=== PATIENT | male | born 1960 | race Caucasian/White ===

== ENCOUNTER 2025-01-04 10:07 | Inpatient (IN) | payer OTHER, SELFPAY ==
[2025-01-04] VITALS (7 sets, daily range): BP systolic 98–117; BP diastolic 65–71; PULSE 65–93; RESP 16–18; TEMP 36.7–37.1; O2SAT 95–100; BMI 18.6
--- NOTE | ~2025-01-04 | CT_ITS ---
EXAMINATION: CT ABDOMEN AND PELVIS WITH CONTRAST CLINICAL INFORMATION: Large inguinal hernia, pain. COMPARISON: None available. TECHNIQUE: Multidetector volumetric images were obtained from the superior aspect of the liver through the pubic symphysis following administration 85 mL of Omnipaque 350 intravenous contrast. Sagittal and coronal reformatted images were obtained on the technologist's workstation. Oral contrast: No This CT examination was performed using dose optimization techniques as appropriate, variously including the following: *Automated exposure control *Adjustment of mA and/or kV according to patient size (this includes techniques or standardized protocols for targeted exams where dose is matched to indication/reason for exam; i.e. extremities or head) *Use of iterative reconstruction technique FINDINGS: LUNG BASES: Hyperaerated lungs with advanced emphysematous changes in the lung bases. Thickening of the small airways is noted throughout both lower lobes, the lingula and right middle lobe. There are subpleural bulla present. There are subpleural consolidative opacities in the posterior lower lobes right greater than left. Inflammatory appearing tree in bud nodularity is seen throughout both lung bases suggesting endobronchial spread of infection. There are no effusions. The heart size is normal. Small hiatus hernia suspected at the GE junction. LIVER, GALLBLADDER, AND BILIARY TREE: The liver is normal in size, shape, and attenuation. No focal hepatic lesion or biliary ductal dilatation is present. The gallbladder is unremarkable with no evidence of radiopaque gallstones, gallbladder wall thickening, or obvious pericholecystic inflammatory changes. PANCREAS: Unremarkable. SPLEEN: Unremarkable. ADRENAL GLANDS: Mild left hyperplasia. The right is normal. KIDNEYS AND URETERS: The kidneys are normal in size, shape, and attenuation. No hydronephrosis, hydroureter, or calculi seen. No perinephric stranding. BLADDER: Markedly decompressed although grossly normal. GASTROINTESTINAL TRACT: There is a large left inguinal hernia containing a loop of incarcerated small bowel and small bowel mesentery, with vascular engorgement, wall thickening of the incarcerated loop with mucosal enhancement, and a subsequent moderate grade mechanical small bowel obstruction of the more proximal loops of small bowel. There is no colonic involvement within the hernia. The cecum is very low-lying within the pelvis, just above the bladder. No evidence of appendicitis. Moderate volume of fecal material in the cecum and ascending colon. No large bowel obstruction. The left colon is decompressed no rectal abnormality identified. PERITONEUM: No free air or ascites. ABDOMINAL WALL: Large left inguinal hernia as discussed above. LYMPH NODES: No lymphadenopathy appreciated. VASCULAR: There is moderate calcific atheromatous change of the aorta, iliac arteries, and their branches. There is no aneurysm. There is no venous thrombosis. PELVIC VISCERA: Mild prostate enlargement, with irregular enhancement pattern, nonspecific. The prostate measures approximately 4.0 cm in diameter. Normal seminal vesicles. OSSEOUS STRUCTURES: No acute or suspicious osseous abnormality. Mild spinal degenerative changes. CT/CT abdomen pelvis w IV con IMPRESSION: 1. Large left inguinal hernia, containing fat, a loop of small bowel, and mesentery. There is incarceration of the loop of small bowel and resultant moderate grade mechanical small bowel obstruction or proximal small bowel.. The loop of bowel within the hernia is thickened and enhancing, consistent with incarceration. Cannot exclude ischemia. 2. There is no free air or gross ascites. 3. There is gaseous distention of the colon, with moderate fecal residue in the right hemicolon, without evidence of large bowel obstruction. No colonic involvement within the left inguinal hernia. 4. Emphysematous changes in the lung bases, with small airway thickening, subpleural reticular opacities, nodular opacities, and centrilobular tree-in-bud type opacities suggesting endobronchial spread of infection. There are no effusions. Electronically signed by: Emiliano Schwarz MD 01/04/2025 01:22 PM EDT
--- NOTE | 2025-01-04 10:28 | ECG_ITS ---
Test Reason : ABD PAIN Blood Pressure : */* mmHG Vent. Rate : 77 BPM Atrial Rate : 77 BPM P-R Int : 134 ms QRS Dur : 80 ms QT Int : 370 ms P-R-T Axes : 90 74 71 degrees QTcB Int : 418 ms Normal sinus rhythm Early repolarization Normal ECG No previous ECGs available Referred By: Ana María Cardona Electronically Signed By: BRAD LAYTON
--- NOTE | 2025-01-04 10:29 | ED_ITS ---
HPI - General Adult General Chief complaint: Abdominal Pain Stated complaint: Lower abd pain Time Seen by Provider: 01/04/25 10:28 Source: patient Mode of arrival: ambulatory Limitations: no limitations History of Present Illness ED Provider: Ana María Cardona PA-C HPI narrative: Patient is a 64 year old assigned male at with a history of tobacco use (1 PPD) presenting to the emergency department today with left lower quadrant abdominal pain and left sided scrotal pain. Patient states that he has had a left inguinal hernia for years and was told to previously have it repaired but stated he put it off. Patient states that usually when he lies down - the pain improves however, over the last 4 days he has had increasing pain. Patient denies any dizziness, lightheadedness, vomiting, fever, chills, blurry vision, double vision, loss of vision, chest pain, difficulty breathing, shortness of breath, back pain, night sweats, pain with urination, increased urinary frequency, increased urinary urgency, blood in his urine or stool, syncope or a near syncopal episode, recent trauma or falls, bowel incontinence, bladder incontinence, or any other complaints at this time. Onset (ago): day(s) (4) Location: abdomen and left (testicle) Relieving factors: none Exacerbating factors: none Associated symptoms: nausea/vomiting Treatments prior to arrival: none Related Data Allergies Allergy/AdvReac Type Severity Reaction Status Date / Time Penicillins [PCN] Allergy Unknown Verified 01/04/25 10:15 Review of Systems 2 Constitutional: Constitutional: Reports no additional constitutional complaints, Denies chills, Denies fever(s) and Denies night sweats Eyes: Eyes: Reports no additional eye complaints, Denies blurry vision, Denies change in vision, Denies diplopia, Denies eye discharge, Denies loss of vision and Denies eye pain ENT: Denies dizziness Cardiovascular: Cardiovascular: Reports no additional cardiovascular complaints, Denies chest pain, Denies lightheadedness, Denies Loss of Consciousness and Denies dyspnea Respiratory: Respiratory: Reports no additional respiratory complaints and Denies dyspnea Gastrointestinal: Gastrointestinal: Reports no additional gastrointestinal complaints, Reports abdominal pain, Denies melena, Denies hematochezia, Denies change in bowel habits, Denies change in stool character, Reports nausea and Denies vomiting Genitourinary: Genitourinary: Reports no additional male genitourinary complaints, Denies hematuria, Denies oliguria, Denies difficulty urinating, Denies dysuria, Reports testicular pain, Denies urinary frequency, Denies urinary hesitancy, Denies urinary incontinence and Denies urinary urgency Musculoskeletal: Musculoskeletal: Reports no additional musculoskeletal complaints, Denies numbness and Denies tingling Neurologic: Denies dizziness, Denies loss of vision, Denies numbness and Denies tingling Psychiatric: Psychiatric: Reports no additional psychiatric complaints Endocrine: Endocrine: Reports no additional endocrine complaints Hematologic/Lymphatic: Hematologic/Lymphatic: Reports no additional hematologic/lymphatic complaints Allergic/Immunologic: Allergic/Immunologic: Reports no additional allergic/immunologic complaints PMFSH Past Medical History Attestation statement: The following information was validated with the patient. Source: old records reviewed and nursing notes reviewed Social History Social History Alcohol intake: current Alcohol intake frequency: a few times a month Smoked in Last 30 Days: Yes Use of substances other than those prescribed or required for medical reasons: Yes Substance Use Type: Marijuana Substance Use Frequency: Occasionally Advance Directives: No Advance Directives Information Provided: Yes Physical Exam ED Vital Signs: Vital Signs - 24 hr 01/04/25 10:14 01/04/25 12:00 Temperature 98.0 F Pulse Rate 93 68 Respiratory Rate 16 18 Blood Pressure 98/65 109/67 Pulse Oximetry 100 96 Oxygen Delivery Method Room Air Room Air BMI result Body Mass Index 18.6 Const General: cooperative, no acute distress, alert and awake Nutritional Appearance: well nourished Orientation/consciousness: patient oriented x3 HENMT Head: Yes normal to inspection and Yes atraumatic Ears: hearing grossly normal bilaterally and external ears normal General nose exam: Normal external nose present, no nasal discharge noted and no epistaxis Face and sinus: Yes normal facial exam, No abrasion and No laceration Mouth: Normal oral and palatal mucosa present, no drooling and no muffled voice Eyes General: appearance normal, both eyes and all related structures Periorbital: periorbital findings normal Eyelids: Yes eyelids normal Conjunctivae: conjunctivae normal Pupils: Equal, round and reactive pupils present EOM: EOMs intact bilaterally Neck Neck: Yes normal visual inspection, Yes full ROM and Yes no lymphadenopathy Resp Effort & Inspection: normal respiratory effort and able to speak in complete sentences Other: significant left sided scrotal swelling Neuro General: patient oriented x3, moves all extremities and CN's II-XI intact bilaterally Cranial nerves: Yes Equal, round and reactive pupils present Cognition (Neuro): normal cognition Extrem General: Yes normal to inspection, Yes full ROM and Yes capillary refill normal Psych Appearance: grossly normal Mental Status: mental status grossly normal Affect: normal affect Attitude: cooperative Thought process: Normal thought process present Thought content: Normal thought content present Insight: Good insight present (Psych) Medications Administered Discontinued Medications Generic Name Dose Route Start Last Admin Trade Name Clary PRN Reason Stop Dose Admin Iohexol 100 ml 01/04/25 12:54 01/04/25 12:54 Iohexol 350 Mg/Ml 100 Ml Infus..Btl IV 01/04/25 12:55 85 ml ONCE ONE Administration Morphine Sulfate 4 mg 01/04/25 10:54 01/04/25 11:28 Morphine Sulfate 4 Mg/Ml Cartridge IVPUSH 01/04/25 10:55 4 mg ONCE ONE Administration Protocol Ondansetron HCl 4 mg 01/04/25 10:54 01/04/25 11:28 Ondansetron Hcl 4 Mg/2 Ml Vial IVPUSH 01/04/25 10:55 4 mg ONCE ONE Administration Medical Decision Making Medical Decision Making [facility] Narrative: Patient is a 64 year old assigned male at with a history of tobacco use (1 PPD) presenting to the emergency department today with left lower quadrant abdominal pain and left sided scrotal pain. Patient's physical exam was as noted in the physical exam portion of this note. Patient's blood work showed an elevated WBC count of 13.2. Patient's urine showed no acute process. Patient's EKG was unremarkable. Patient's CT abd/pelvis showed a large left inguinal hernia, containing fat a loop of small bowel, and mesentery, with incarceration of the loop of small bowel and resultant moderate grade mechanical small bowel obstruction. I spoke to the general surgery team who recommended clear liquids for the patient, NPO after midnight, and admission to their service for surgical repair tomorrow (01/05/2025). I explained my physical exam findings as well as all test results to the patient. I answered all questions asked by the patient. Patient received IV Morphine and Zofran which, upon re-evaluation, he stated it helped his symptoms some. Patient verbalized agreement and understanding with this treatment plan and admission. Differential Diagnosis Differential Diagnoses: The differential diagnosis associated with the presentation includes Inguinal hernia Incarcerated hernia SBO Admission/Observation Consideration of admission/observation: Escalation of care including admission/observation considered Patient admitted as noted in the MDM Rationale portion of this note. 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 ) Lab Data [facility] Lab Attestation statement: I reviewed the patient's lab results. My interpretation of these results are in the MDM Rationale portion of this note. 01/04/25 10:44 01/04/25 11:28 Labs: Lab Results 01/04/25 01/04/25 01/04/25 Range/Units 10:44 11:28 11:59 WBC 13.2 H (4.8-10.8) X10*3/uL RBC 4.47 L (4.60-5.80) X10*6/uL Hgb 13.1 L (14.0-18.0) g/dl Hct 37.6 L (42.0-52.0) % MCV 84.1 (80.0-98.0) fL MCH 29.3 (27.0-33.0) pg MCHC 34.8 (31.0-36.0) g/dl RDW 14.2 (11.0-16.0) % Plt Count 282 (160-400) X10*3/uL MPV 9.4 (9.4-12.4) fL Immature Gran % (Auto) 0.4 (0.0-0.4) % Neut % (Auto) 76.2 H (45-73) % Lymph % (Auto) 12.3 L (20-40) % [place] % (Auto) 9.1 (2-11) % Eos % (Auto) 1.5 (0-4) % Baso % (Auto) 0.5 (0-2) % Lymph # (Auto) 1.6 (1.2-4.9) X10*3/uL [place] # (Auto) 1.2 (0.1-1.2) X10*3/uL Eos # (Auto) 0.2 (0.0-0.4) X10*3/uL Baso # (Auto) 0.1 (0.0-0.2) X10*3/uL Abs Immat Gran (auto) 0.05 H (0.00-0.03) X10*3/uL Absolute Neuts (auto) 10.0 H (2.0-8.3) x10*3/uL Absolute Nucleated RBC 0.000 (0.0-0.012) X10*3/uL Nucleated RBC % (auto) 0.0 (0.0-0.2) /100WBC Sodium 134 L (135-145) mmol/L Potassium 3.5 (3.3-5.1) mmol/L Chloride 99 (96-108) mmol/L Carbon Dioxide 29 (22-29) mmol/L Anion Gap 10 L (12-20) BUN 22 H (9-16) mg/dL Creatinine 0.84 (0.5-1.4) mg/dL Estim Creat Clear Calc 72.6 Estimated GFR > 60 Random Glucose 88 (60-115) mg/dL Lactic Acid (0.5-2.0) mmol/L Calcium 9.1 (8.4-10.2) mg/dL Magnesium 2.1 (1.6-2.6) mg/dL Total Bilirubin 0.9 (0.0-1.0) mg/dL AST 21 (5-37) U/L ALT 10 (0-40) U/L Alkaline Phosphatase 79 (39-117) U/L Total Protein 6.9 (6.5-8.0) g/dL Albumin 3.9 (3.5-5.0) g/dL Urine Color Yellow Urine Appearance Clear Urine pH 6.0 (5.0-9.0) Ur Specific [place] >= 1.030 H (1.005-1.025) Urine Protein 100 (2+) H (Neg-Trace) mg/dL Urine Glucose (UA) Negative (Negative) mg/dL Urine Ketones Trace (Negative) mg/dL Urine Blood Negative (Negative) Urine Nitrite Negative (Negative) Ur Leukocyte Esterase Negative (Negative) Urine RBC 0-2 (0-2) /HPF Urine WBC 0-5 (0-5) /HPF Ur Squamous Epith Cells 0-2 (0-2) /HPF Urine Bacteria None Seen (None Seen) Hyaline Casts 0-2 (0-2) /LPF Influenza Type A (PCR) NEGATIVE (Negative) Influenza Type B (PCR) NEGATIVE (Negative) RSV RNA Qual (PCR) NEGATIVE (Negative) SARS-CoV-2 RNA (RT-PCR) NEGATIVE (Negative) 01/04/25 Range/Units 14:02 WBC (4.8-10.8) X10*3/uL RBC (4.60-5.80) X10*6/uL Hgb (14.0-18.0) g/dl Hct (42.0-52.0) % MCV (80.0-98.0) fL MCH (27.0-33.0) pg MCHC (31.0-36.0) g/dl RDW (11.0-16.0) % Plt Count (160-400) X10*3/uL MPV (9.4-12.4) fL Immature Gran % (Auto) (0.0-0.4) % Neut % (Auto) (45-73) % Lymph % (Auto) (20-40) % [place] % (Auto) (2-11) % Eos % (Auto) (0-4) % Baso % (Auto) (0-2) % Lymph # (Auto) (1.2-4.9) X10*3/uL [place] # (Auto) (0.1-1.2) X10*3/uL Eos # (Auto) (0.0-0.4) X10*3/uL Baso # (Auto) (0.0-0.2) X10*3/uL Abs Immat Gran (auto) (0.00-0.03) X10*3/uL Absolute Neuts (auto) (2.0-8.3) x10*3/uL Absolute Nucleated RBC (0.0-0.012) X10*3/uL Nucleated RBC % (auto) (0.0-0.2) /100WBC Sodium (135-145) mmol/L Potassium (3.3-5.1) mmol/L Chloride (96-108) mmol/L Carbon Dioxide (22-29) mmol/L Anion Gap (12-20) BUN (9-16) mg/dL Creatinine (0.5-1.4) mg/dL Estim Creat Clear Calc Estimated GFR Random Glucose (60-115) mg/dL Lactic Acid 0.9 (0.5-2.0) mmol/L Calcium (8.4-10.2) mg/dL Magnesium (1.6-2.6) mg/dL Total Bilirubin (0.0-1.0) mg/dL AST (5-37) U/L ALT (0-40) U/L Alkaline Phosphatase (39-117) U/L Total Protein (6.5-8.0) g/dL Albumin (3.5-5.0) g/dL Urine Color Urine Appearance Urine pH (5.0-9.0) Ur Specific [place] (1.005-1.025) Urine Protein (Neg-Trace) mg/dL Urine Glucose (UA) (Negative) mg/dL Urine Ketones (Negative) mg/dL Urine Blood (Negative) Urine Nitrite (Negative) Ur Leukocyte Esterase (Negative) Urine RBC (0-2) /HPF Urine WBC (0-5) /HPF Ur Squamous Epith Cells (0-2) /HPF Urine Bacteria (None Seen) Hyaline Casts (0-2) /LPF Influenza Type A (PCR) (Negative) Influenza Type B (PCR) (Negative) RSV RNA Qual (PCR) (Negative) SARS-CoV-2 RNA (RT-PCR) (Negative) Independent Interpretation I performed an independent interpretation of an: EKG and CT Scan Interpretation: My interpretation is in agreement with the radiologist's impression of this imaging study. L Report Number: [id number]: Total DLP = 414.00 mGy-cm EXAMINATION: CT ABDOMEN AND PELVIS WITH CONTRAST CLINICAL INFORMATION: Large inguinal hernia, pain. COMPARISON: None available. TECHNIQUE: Multidetector volumetric images were obtained from the superior aspect of the liver through the pubic symphysis following administration 85 mL of Omnipaque 350 intravenous contrast. Sagittal and coronal reformatted images were obtained on the technologist's workstation. Oral contrast: No This CT examination was performed using dose optimization techniques as appropriate, variously including the following: *Automated exposure control *Adjustment of mA and/or kV according to patient size (this includes techniques or standardized protocols for targeted exams where dose is matched to indication/reason for exam; i.e. extremities or head) *Use of iterative reconstruction technique FINDINGS: LUNG BASES: Hyperaerated lungs with advanced emphysematous changes in the lung bases. Thickening of the small airways is noted throughout both lower lobes, the lingula and right middle lobe. There are subpleural bulla present. There are subpleural consolidative opacities in the posterior lower lobes right greater than left. Inflammatory appearing tree in bud nodularity is seen throughout both lung bases suggesting endobronchial spread of infection. There are no effusions. The heart size is normal. Small hiatus hernia suspected at the GE junction. LIVER, GALLBLADDER, AND BILIARY TREE: The liver is normal in size, shape, and attenuation. No focal hepatic lesion or biliary ductal dilatation is present. The gallbladder is unremarkable with no evidence of radiopaque gallstones, gallbladder wall thickening, or obvious pericholecystic inflammatory changes. PANCREAS: Unremarkable. SPLEEN: Unremarkable. ADRENAL GLANDS: Mild left hyperplasia. The right is normal. KIDNEYS AND URETERS: The kidneys are normal in size, shape, and attenuation. No hydronephrosis, hydroureter, or calculi seen. No perinephric stranding. BLADDER: Markedly decompressed although grossly normal. GASTROINTESTINAL TRACT: There is a large left inguinal hernia containing a loop of incarcerated small bowel and small bowel mesentery, with vascular engorgement, wall thickening of the incarcerated loop with mucosal enhancement, and a subsequent moderate grade mechanical small bowel obstruction of the more proximal loops of small bowel. There is no colonic involvement within the hernia. The cecum is very low-lying within the pelvis, just above the bladder. No evidence of appendicitis. Moderate volume of fecal material in the cecum and ascending colon. No large bowel obstruction. The left colon is decompressed no rectal abnormality identified. PERITONEUM: No free air or ascites. ABDOMINAL WALL: Large left inguinal hernia as discussed above. LYMPH NODES: No lymphadenopathy appreciated. VASCULAR: There is moderate calcific atheromatous change of the aorta, iliac arteries, and their branches. There is no aneurysm.There is no venous thrombosis. PELVIC VISCERA: Mild prostate enlargement, with irregular enhancement pattern, nonspecific. The prostate measures approximately 4.0 cm in diameter. Normal seminal vesicles. OSSEOUS STRUCTURES: No acute or suspicious osseous abnormality. Mild spinal degenerative changes. CT/CT abdomen pelvis w IV con IMPRESSION: 1. Large left inguinal hernia, containing fat, a loop of small bowel, and mesentery. There is incarceration of the loop of small bowel and resultant moderate grade mechanical small bowel obstruction or proximal small bowel. The loop of bowel within the hernia is thickened and enhancing, consistent with incarceration. Cannot exclude ischemia. 2. There is no free air or gross ascites. 3. There is gaseous distention of the colon, with moderate fecal residue in the right hemicolon, without evidence of large bowel obstruction. No colonic involvement within the left inguinal hernia. 4. Emphysematous changes in the lung bases, with small airway thickening, subpleural reticular opacities, nodular opacities, and centrilobular tree-in-bud type opacities suggesting endobronchial spread of infection. There are no effusions. Electronically signed by: Emiliano Schwarz MD 01/04/2025 01:22 PM EDT RP Dictated By: Emiliano Schwarz MD Signed By: Electronically signed by Emiliano Schwarz MD 01/04/25 1322 I independently interpreted this EKG and am in agreement with the below findings: Vent. Rate: 77 BPM Atrial Rate: 77 BPM P-R Int: 134 ms QRS Dur: 80 ms QT Int: 370 ms P-R-T Axes: 90 74 71 degrees QTcB Int: 418 ms Normal sinus rhythm Early repolarization Normal ECG No previous ECGs available DD/ [id number] Radiology Impression Discussion of test interpretation with radiology: I have reviewed the radiologist's reading. Critical Care Time Critical Care Time Critical Care Time: Yes Total Critical Care Time: 34 Attestation: I spent 34 minutes of Critical Care Time with this patient. This does not include time spent on separately reported billable procedures. Discharge Plan Discharge Clinical Impression: Incarcerated left inguinal hernia, Small bowel obstruction Patient Disposition: Admitted As Inpatient Print Language: Kiswahili
--- NOTE | 2025-01-04 10:54 | PC.NURSE ---
pt is alert and oriented, skin pwd, respirations even and unlabored, ls clear with a chronic junky cough-hx of copd and smoking, pt reports since Wednesday having left lower abd pain/nausea, active bowel sounds in all 4 quadrants, abd soft and non-tender, when asked the pt where the pain is he points to the left groin/testicle area, pt reports hx of hernia chaperoned Ana María TOBAR in the testicular evaluation, left testicle very enlarged
[2025-01-04 10:58] LABS: MANUAL DIFF FLAG NO
[2025-01-04 11:02] LABS: Basophils Absolute Auto 0.1 X10*3/uL (0.0-0.2); Basophils Percent Auto 0.5 % (0-2); Eosinophils Absolute Auto 0.2 X10*3/uL (0.0-0.4); Eosinophils Percent Auto 1.5 % (0-4); Hematocrit 37.6 % (42.0-52.0); Hemoglobin 13.1 g/dl (14.0-18.0); Imm Gran Abs Auto 0.05 X10*3/uL (0.00-0.03); Imm Gran Pct Auto 0.4 % (0.0-0.4); Lymphocytes Absolute Auto 1.6 X10*3/uL (1.2-4.9); Lymphocytes Percent Auto 12.3 % (20-40); Mean Corpuscular HGB Conc 34.8 g/dl (31.0-36.0); Mean Corpuscular Hemoglobin 29.3 pg (27.0-33.0); Mean Corpuscular Volume 84.1 fL (80.0-98.0); Mean Platelet Volume 9.4 fL (9.4-12.4); Monocytes Absolute Auto 1.2 X10*3/uL (0.1-1.2); Monocytes Percent Auto 9.1 % (2-11); Neutrophils Percent Auto 76.2 % (45-73); Platelet Count 282 X10*3/uL (160-400); Red Blood Count 4.47 X10*6/uL (4.60-5.80); Red Cell Distribution Width 14.2 % (11.0-16.0); White Blood Count 13.2 X10*3/uL (4.8-10.8)
--- NOTE | 2025-01-04 11:09 | PC.NURSE ---
Report received. Taken over care at this time.
[2025-01-04] MEDS: Morphine Sulfate 4 MG/ML CARTRIDGE IVPUSH (11:28)
[2025-01-04] MEDS: ondansetron HCL 4 MG/2 ML VIAL IVPUSH (11:28)
[2025-01-04 11:35] LABS: Influenza A PCR NEGATIVE (Negative); Influenza B PCR NEGATIVE (Negative); Resp Syncy Virus RNA Qual PCR NEGATIVE (Negative); SARS COV2 PCR INHOUSE NEGATIVE (Negative)
[2025-01-04 11:47] LABS: Alanine Aminotransferase 10 U/L (0-40); Albumin Level 3.9 g/dL (3.5-5.0); Alkaline Phosphatase 79 U/L (39-117); Anion Gap 10 (12-20); Aspartate Amino Transferase 21 U/L (5-37); Bilirubin Total 0.9 mg/dL (0.0-1.0); Blood Urea Nitrogen 22 mg/dL (9-16); Calcium 9.1 mg/dL (8.4-10.2); Carbon Dioxide 29 mmol/L (22-29); Chloride 99 mmol/L (96-108); Creatinine Clr Calc Pharmacy 72.6; Estimated Glomerular Filt Rate > 60; Glucose Random 88 mg/dL (60-115); Magnesium 2.1 mg/dL (1.6-2.6); Potassium 3.5 mmol/L (3.3-5.1); Sodium 134 mmol/L (135-145); Total Protein 6.9 g/dL (6.5-8.0)
[2025-01-04 12:09] LABS: Appearance Urine Clear; Color Urine Yellow; Glucose Urine UA Negative (Negative); Leukocyte Esterase Urine Negative (Negative); Nitrite Urine Negative (Negative); Specific Gravity - Urine >= 1.030 (1.005-1.025); UMIC TRIGGER UACC YES; Urine Blood Negative (Negative); Urine Ketones Trace mg/dL (Negative); Urine Protein 100 (2+) mg/dL (Neg-Trace)
[2025-01-04 12:11] LABS: Bacteria Urine None Seen (None Seen); Hyaline Casts Urine 0-2 /LPF (0-2); RBC Urine 0-2 /HPF (0-2); Squamous Epithelial Cell Urine 0-2 /HPF (0-2); WBC Urine 0-5 /HPF (0-5)
[2025-01-04] MEDS: iohexoL 350 MG/ML 100 ML INFUS..BTL IV (12:54)
[2025-01-04 14:26] LABS: Lactic Acid 0.9 mmol/L (0.5-2.0)
--- NOTE | 2025-01-04 14:44 | PM.HPGS ---
History of Present Illness History of Present Illness Date of Service: 01/04/25 Chief complaint: left incarcerated inguinal hernia Narrative: Ramírez Curran is a 64 year old male with PMH significant for COPD, smoker who presented to the ED with complaints of pain at his left inguinal hernia. He has had a left inguinal hernia for over 10 years that has been gradually increasing in size. It normally does not bother him and he can reduce it without difficulty. He however reports that over the past week he has had increasing pain at the hernia site and he has been unable to reduce it. Due to the pain, he presented to the ED where work up included CBC, BMP, LFTs which showed a mild leukocytosis. Lactic acid was normal. CT scan was performed which showed large left inguinal hernia containing a loop of incarcerated small bowel and small bowel mesentery. He had some associated nausea earlier this week but this resolved. He has been passing gas and having normal bowel movements. The pain is somewhat improved since earlier today. He does not have a primary care provider and has not seen a physician in multiple years. He reports some occasional shortness of breath with exertion at work when he does heavy lifting and upon lying flat. Review of Systems Constitutional: Constitutional: Denies chills and Denies fever(s) ENT: Denies dizziness Cardiovascular: Cardiovascular: Denies chest pain Gastrointestinal: Gastrointestinal: Reports as per HPI Integumentary/Breasts: Skin/Breast: Denies rash and Denies skin pain Neurologic: Denies dizziness PMFSH Social History Social History Alcohol intake: current Alcohol intake frequency: a few times a month Smoked in Last 30 Days: Yes Use of substances other than those prescribed or required for medical reasons: Yes Substance Use Type: Marijuana Substance Use Frequency: Occasionally Advance Directives: No Advance Directives Information Provided: Yes Meds Allergies Allergy/AdvReac Type Severity Reaction Status Date / Time Penicillins [PCN] Allergy Unknown Verified 01/04/25 10:15 Physical Exam Vital Signs: Vital Signs: Last Vital Signs Temp 98.0 F 01/04/25 10:14 Pulse 68 01/04/25 12:00 Resp 18 01/04/25 12:00 BP 109/67 01/04/25 12:00 Pulse Ox 96 01/04/25 12:00 O2 Del Method Room Air 01/04/25 12:00 BMI result Body Mass Index 18.6 Const: General: comfortable, no acute distress and alert Orientation/consciousness: patient oriented x3 Resp: Effort & Inspection: normal respiratory effort, able to speak in complete sentences, not labored and not tachypneic Cardio: Rate: regular rate GI: Other: scaphoid abdomen large irreducible inguinal hernia that extends into scrotum, mildly tender to palpation, no overlying skin changes Inspection: No distended Palpation (GI): Soft to palpation, no guarding and not rigid Percussion: Yes normal to percussion Skin: General skin exam: no rashes or lesions noted Neuro: General: patient oriented x3 and moves all extremities Results Results Labs: Short CBC 01/04/25 Range/Units 10:44 WBC 13.2 H (4.8-10.8) X10*3/uL Hgb 13.1 L (14.0-18.0) g/dl Hct 37.6 L (42.0-52.0) % Plt Count 282 (160-400) X10*3/uL BMP 01/04/25 11:28 Sodium 134 L Potassium 3.5 Chloride 99 Carbon Dioxide 29 BUN 22 H Creatinine 0.84 Calcium 9.1 Liver Function 01/04/25 Range/Units 11:28 Total Bilirubin 0.9 (0.0-1.0) mg/dL AST 21 (5-37) U/L ALT 10 (0-40) U/L Alkaline Phosphatase 79 (39-117) U/L Albumin 3.9 (3.5-5.0) g/dL Urine 01/04/25 Range/Units 11:59 Urine Color Yellow Urine Appearance Clear Urine pH 6.0 (5.0-9.0) Ur Specific [place] >= 1.030 H (1.005-1.025) Urine Protein 100 (2+) H (Neg-Trace) mg/dL Urine Glucose (UA) Negative (Negative) mg/dL Abdomen CT scan report/results: report reviewed and image reviewed Assessment and Plan (1) Incarcerated left inguinal hernia: Status: Acute Plan 64 year old male with PMH significant for COPD, smoker who presented to the ED of worsening pain of his left inguinal hernia and inability to reduce it. CT scan showed large left inguinal hernia containing small bowel and mesentery with small bowel dilatation concerning for obstruction and ischemia. Lactic acid is normal. Exam shows large left inguinal hernia extending into his scrotum that is irreducible, no overlying skin changes, mildly tender. His abdomen is otherwise benign without distention or tenderness. Clinically, he is not obstructed and lactic acid is normal. Recommended admission to the surgical service with plan for repair of the incarcerated left inguinal hernia with mesh tomorrow morning. Can have clear liquids for now, NPO after midnight. He is comfortable with plan. Quality Stroke Does the patient have a stroke diagnosis?: No VTE Prior VTE?: No VTE Risk Level:: Surgical - moderate VTE Device Contraindication: N/A - Device Ordered VTE Drug Contraindication: Treatment Not Indicated Procedures Date of Service Date of Service: 01/04/25
--- NOTE | 2025-01-04 16:05 | PHA.MEDREC ---
Addendum entered by Ignacio Judge [facility] 01/04/25 17:03: MED REC CHECKED BY [facility] Original Note: Pharmacy Consult ? Medication Reconciliation Pharmacy has completed the medication reconciliation. Spoke with patient and he states he only uses Tylenol as needed for pain at home and nothing else at this time.
[2025-01-04] MEDS: Nicotine 21 MG PATCH.TD24 TRANSDERMA (18:31)
[2025-01-04] MEDS: Lactated Ringers 1,000 ML 80 ML IVCONT (18:31)
[2025-01-04] MEDS: 0.9 % Sodium Chloride Flush 3 ML SYRINGE IVFLUSH (18:32)
--- NOTE | 2025-01-04 19:38 | HO.PM.IMCN ---
History of Present Illness Data of Consult Service Date: 01/04/25 Primary Care Provider: None Physician [facility] Reason for consult: Abdominal pain Pt is a 64-year-old male with a PMH significant for COPD, 45 pack-year smoking hx, not on home medications or inhalers who presented to the ED with abdominal pain at the site left inguinal hernia. CT of abdomen and pelvis showed large left inguinal hernia containing a loop of incarcerated small bowel and small bowel mesentery. Pt was admitted to the hospital under general surgery services with hospitalist consult for medical management and preop clearance. Pt complains of left groin pain currently well-controlled with analgesics. Had nausea and vomiting earlier in the week but none for the past 2 days. Has not been eating or drinking much for the past 4 days. Pt denies any known medical issues other than COPD, though admits has not seen a PCP and over 10 years. Denies significant cardiac hx. Reports chronic SOB and nonproductive cough at baseline. Overall patient's vitals stable and reassuring, satting at 97% on RA. Labs significant for leukocytosis of 13.2, slight anemia of 13.1/37.6, and sodium 134. CT of abdomen and pelvis showed large left inguinal hernia with incarceration of small bowel. Also showed emphysematous changes in lung bases with small airway thickening, subpleural reticular opacities, nodular opacities, and centrilobular tree-in-bud type opacity suggestive of endobronchial spread of infection. EKG reviewed showing normal sinus rhythm with QTC 418 and no evidence of significant ischemia. Review of Systems Review of Systems: Negative except for that which is stated in the HPI [facility] Medical History (Updated 01/04/25 @ 20:53 by AMADOU Hagen) COPD (chronic obstructive pulmonary disease) Social History Household Members: Spouse Housing: House Do you presently have visiting nurse or other home services: No Alcohol intake: current Alcohol intake frequency: a few times a month Patient Tobacco Use Status: Current everyday Tobacco user Tobacco use type: Cigarette Cigarette Packs Per Day: 1 Cigarettes Per Day: 20.0 Substance Use Type: Marijuana Meds Allergies Allergy/AdvReac Type Severity Reaction Status Date / Time Penicillins [PCN] Allergy Unknown Verified 01/04/25 10:15 Active Medications: Current Medications Acetaminophen (Acetaminophen 325 Mg Tablet) 650 mg PO Q6H PRN PRN Reason: Pain, Mild 1-3,fever,headache Calcium Carbonate (Calcium Carbonate 750 Mg Tab.Chew) 750 mg PO Q4H PRN PRN Reason: Heartburn Lactated Ringer's (Lr) 1,000 mls @ 80 mls/hr IVCONT .[id number] [facility] Last Admin: 01/04/25 18:31 Dose: 80 mls/hr Melatonin (Melatonin 3 Mg Tablet) 6 mg PO BEDTIME PRN PRN Reason: Insomnia Morphine Sulfate (Morphine Sulfate 4 Mg/Ml Cartridge) 2 mg IVPUSH Q4H PRN; Protocol PRN Reason: Pain, Severe (Pain Scale 7-10) Nicotine (Nicotine 21 Mg Patch.Td24) 21 mg TRANSDERMA DAILY [facility] Last Admin: 01/04/25 18:31 Dose: 21 mg Ondansetron HCl (Ondansetron Hcl 4 Mg/2 Ml Vial) 4 mg IVPUSH Q8H PRN PRN Reason: Nausea and Vomiting Oxycodone HCl (Oxycodone Hcl Immed Release 5 Mg Tablet) 5 mg PO Q6H PRN PRN Reason: Pain, Moderate(Pain Scale 4-6) Sodium Chloride (0.9 % Sodium Chloride Flush 3 Ml Syringe) 3 ml IVFLUSH QSHIFT [facility] Last Admin: 01/04/25 18:32 Dose: 3 ml Home Medications ?Medication ?Instructions ?Recorded ?Confirmed ?Last Taken ?Type acetaminophen 325 mg tablet 650 mg PO Q4H PRN Pain 01/04/25 01/04/25 Unknown History (Tylenol) Physical Exam Vital Signs and Narrative: Vital Signs: Last Vital Signs Temp 98.5 F 01/04/25 16:00 Pulse 71 01/04/25 18:17 Resp 16 01/04/25 18:17 BP 110/69 01/04/25 18:17 Pulse Ox 100 01/04/25 18:17 O2 Del Method Room Air 01/04/25 18:17 BMI result Body Mass Index 18.6 General: AOx3, no acute distress Resp: Diffuse bilateral wheezing and rhonchi CVS: S1, S2, RRR GI: +BS, NT, no distention : Left inguinal tenderness with irreducible hernia Skin: Warm, dry Neuro: Cranial nerves II-XII grossly intact bilaterally. Motor grossly intact bilaterally Extremities: No edema Psych: Appropriate affect Results Labs 01/04/25 10:44 01/04/25 11:28 Labs: Laboratory Results - last 24 hr 01/04/25 01/04/25 01/04/25 10:44 11:28 11:59 MCV 84.1 MCH 29.3 MCHC 34.8 RDW 14.2 Plt Count 282 MPV 9.4 Immature Gran % (Auto) 0.4 Neut % (Auto) 76.2 H Lymph % (Auto) 12.3 L [place] % (Auto) 9.1 Eos % (Auto) 1.5 Baso % (Auto) 0.5 Lymph # (Auto) 1.6 [place] # (Auto) 1.2 Eos # (Auto) 0.2 Baso # (Auto) 0.1 Abs Immat Gran (auto) 0.05 H Absolute Neuts (auto) 10.0 H Absolute Nucleated RBC 0.000 Nucleated RBC % (auto) 0.0 Anion Gap 10 L Estim Creat Clear Calc 72.6 Estimated GFR > 60 Random Glucose 88 Lactic Acid Calcium 9.1 Magnesium 2.1 Total Bilirubin 0.9 AST 21 ALT 10 Alkaline Phosphatase 79 Total Protein 6.9 Albumin 3.9 Urine Color Yellow Urine Appearance Clear Urine pH 6.0 Ur Specific [place] >= 1.030 H Urine Protein 100 (2+) H Urine Glucose (UA) Negative Urine Ketones Trace Urine Blood Negative Urine Nitrite Negative Ur Leukocyte Esterase Negative Urine RBC 0-2 Urine WBC 0-5 Ur Squamous Epith Cells 0-2 Urine Bacteria None Seen Hyaline Casts 0-2 Influenza Type A (PCR) NEGATIVE Influenza Type B (PCR) NEGATIVE RSV RNA Qual (PCR) NEGATIVE SARS-CoV-2 RNA (RT-PCR) NEGATIVE 01/04/25 14:02 MCV MCH MCHC RDW Plt Count MPV Immature Gran % (Auto) Neut % (Auto) Lymph % (Auto) [place] % (Auto) Eos % (Auto) Baso % (Auto) Lymph # (Auto) [place] # (Auto) Eos # (Auto) Baso # (Auto) Abs Immat Gran (auto) Absolute Neuts (auto) Absolute Nucleated RBC Nucleated RBC % (auto) Anion Gap Estim Creat Clear Calc Estimated GFR Random Glucose Lactic Acid 0.9 Calcium Magnesium Total Bilirubin AST ALT Alkaline Phosphatase Total Protein Albumin Urine Color Urine Appearance Urine pH Ur Specific [place] Urine Protein Urine Glucose (UA) Urine Ketones Urine Blood Urine Nitrite Ur Leukocyte Esterase Urine RBC Urine WBC Ur Squamous Epith Cells Urine Bacteria Hyaline Casts Influenza Type A (PCR) Influenza Type B (PCR) RSV RNA Qual (PCR) SARS-CoV-2 RNA (RT-PCR) Imaging Radiologist's Impressions: Impressions Abdomen/Pelvis CT 01/04/25 12:25 IMPRESSION: 1. Large left inguinal hernia, containing fat, a loop of small bowel, and mesentery. There is incarceration of the loop of small bowel and resultant moderate grade mechanical small bowel obstruction or proximal small bowel.. The loop of bowel within the hernia is thickened and enhancing, consistent with incarceration. Cannot exclude ischemia. 2. There is no free air or gross ascites. 3. There is gaseous distention of the colon, with moderate fecal residue in the right hemicolon, without evidence of large bowel obstruction. No colonic involvement within the left inguinal hernia. 4. Emphysematous changes in the lung bases, with small airway thickening, subpleural reticular opacities, nodular opacities, and centrilobular tree-in-bud type opacities suggesting endobronchial spread of infection. There are no effusions. Electronically signed by: Emiliano Schwarz MD 01/04/2025 01:22 PM EDT RP Assessment and Plan (1) Incarcerated left inguinal hernia: Status: Acute Plan Pt is a 64-year-old male with a PMH significant for COPD, 45 pack-year smoking hx, not on home medications or inhalers who presented to the ED with abdominal pain at the site left inguinal hernia. CT of abdomen and pelvis showed large left inguinal hernia containing a loop of incarcerated small bowel and small bowel mesentery. Pt was admitted to the hospital under general surgery services with hospitalist consult for medical management and preop clearance. Incarcerated left inguinal hernia Plan as per General surgery Surgical repair planned for tomorrow RCRI 1 point, pt without significant cardiac hx, EKG showing normal sinus rhythm without significant ischemia No additional cardiac workup indicated at this time Pt at moderate risk for planned procedure given age and COPD hx Question of pneumonia Pt reports SOB and chronic mostly nonproductive cough at baseline CT showing small airway thickening, subpleural reticular opacities, nodular opacities, and centrilobular tree-in-bud type opacities suggestive of endobronchial spread of infection No sepsis: Leukocytosis likely reactionary, pt afebrile Will treat with Levaquin, started 01/04/2025 Pulmonology consult COPD Pt with wheezing and rhonchi No hypoxia: Pt is satting at 97% on RA Pt not on home inhalers Will treat with DuoNebs p.r.n. Incentive spirometry postop Nicotine dependence Smoking cessation counseled Thank you for allowing us to participate in the care of this pt. We will continue to follow along with you.
[2025-01-04] MEDS: levoFLOXacin/D5W 750 MG/150 ML PIGGYBACK 100 MG IV (21:01)
[2025-01-04] MEDS: Albuterol/Iprat 2.5/0.5MG 3 ML AMPUL.NEB INHALE (21:43)
[2025-01-05] VITALS (12 sets, daily range): BP systolic 96–138; BP diastolic 51–77; PULSE 58–86; RESP 15–18; TEMP 36.5–37; O2SAT 96–100; BMI 18.6
[2025-01-05] MEDS: Lactated Ringers 1,000 ML 80 ML IVCONT (05:58)
[2025-01-05] MEDS: Nicotine 21 MG PATCH.TD24 TRANSDERMA (08:17)
--- NOTE | 2025-01-05 08:28 | P.PNGS_ITS ---
Subjective Subjective Date of Service: 01/05/25 <Elieser Fernandez PA-C - Last Filed: 01/05/25 08:36> 01/05/25 <Bong Callaway MD - Last Filed: 01/05/25 08:39> Patient reports: no new complaints, flatus and no bowel movement <MANDIE Desai Last Filed: 01/05/25 08:36> Interval history: Patient continues to have pain, states this is about the same as yesterday. Passing flatus. Denies nausea, vomiting. Denies eating or drinking. < Elieser Fernandez PA-C - Last Filed: 01/05/25 08:36> Physical Exam 2 Vital Signs: Vital Signs: Last Vital Signs Temp 98.6 F 01/05/25 07:36 Pulse 66 01/05/25 07:36 Resp 18 01/05/25 07:36 BP 108/63 01/05/25 07:36 Pulse Ox 97 01/05/25 07:36 O2 Del Method Room Air 01/05/25 07:36 BMI result Body Mass Index 18.6 <Elieser Fernandez PA-C - Last Filed: 01/05/25 08:36> Const: General: comfortable and no acute distress <MANDIE Desai Last Filed: 01/05/25 08:36> Resp: Effort & Inspection: normal respiratory effort and able to speak in complete sentences <MANDIE Desai Last Filed: 01/05/25 08:36> GI: Other: large left inguinal hernia, nonreducible <MANDIE Desai Last Filed: 01/05/25 08:36> Inspection: No distended <MANDIE Desai Last Filed: 01/05/25 08:36> Objective Data Active Medications Acetaminophen (Acetaminophen 325 Mg Tablet) 650 mg PO Q6H PRN PRN Reason: Pain, Mild 1-3,fever,headache Albuterol/Ipratropium (Albuterol/Iprat 2.5/0.5mg 3 Ml Ampul.Neb) 3 ml INHALE RQ4H WHILE AWAKE PRN PRN Reason: Shortness of Breath/Wheezing Calcium Carbonate (Calcium Carbonate 750 Mg Tab.Chew) 750 mg PO Q4H PRN PRN Reason: Heartburn Lactated Ringer's (Lr) 1,000 mls @ 80 mls/hr IVCONT .[id number] [facility] Last Admin: 01/05/25 05:58 Dose: 80 mls/hr Documented By: GINA Levofloxacin (Levaquin) 750 mg in 150 mls @ 100 mls/hr IV Q24H [facility] Last Infusion: 01/04/25 22:49 Dose: Infused Documented By: ANGELLA Melatonin (Melatonin 3 Mg Tablet) 6 mg PO BEDTIME PRN PRN Reason: Insomnia Morphine Sulfate (Morphine Sulfate 4 Mg/Ml Cartridge) 2 mg IVPUSH Q4H PRN; Protocol PRN Reason: Pain, Severe (Pain Scale 7-10) Nicotine (Nicotine 21 Mg Patch.Td24) 21 mg TRANSDERMA DAILY [facility] Last Admin: 01/05/25 08:17 Dose: 21 mg Documented By: VANDANA Ondansetron HCl (Ondansetron Hcl 4 Mg/2 Ml Vial) 4 mg IVPUSH Q8H PRN PRN Reason: Nausea and Vomiting Oxycodone HCl (Oxycodone Hcl Immed Release 5 Mg Tablet) 5 mg PO Q6H PRN PRN Reason: Pain, Moderate(Pain Scale 4-6) Sodium Chloride (0.9 % Sodium Chloride Flush 3 Ml Syringe) 3 ml IVFLUSH QSHIFT [facility] Last Admin: 01/05/25 08:16 Dose: Not Given Documented By: VANDANA Non-Admin Reason: IV Running <Elieser Fernandez PA-C - Last Filed: 01/05/25 08:36> Labs CBC & Chem 7: 01/04/25 10:44 01/04/25 11:28 <Elieser Fernandez PA-C - Last Filed: 01/05/25 08:36> Labs: Laboratory Results - last 24 hr 01/04/25 01/04/25 01/04/25 10:44 11:28 11:59 MCV 84.1 MCH 29.3 MCHC 34.8 RDW 14.2 Plt Count 282 MPV 9.4 Immature Gran % (Auto) 0.4 Neut % (Auto) 76.2 H Lymph % (Auto) 12.3 L [place] % (Auto) 9.1 Eos % (Auto) 1.5 Baso % (Auto) 0.5 Lymph # (Auto) 1.6 [place] # (Auto) 1.2 Eos # (Auto) 0.2 Baso # (Auto) 0.1 Abs Immat Gran (auto) 0.05 H Absolute Neuts (auto) 10.0 H Absolute Nucleated RBC 0.000 Nucleated RBC % (auto) 0.0 Anion Gap 10 L Estim Creat Clear Calc 72.6 Estimated GFR > 60 Random Glucose 88 Lactic Acid Calcium 9.1 Magnesium 2.1 Total Bilirubin 0.9 AST 21 ALT 10 Alkaline Phosphatase 79 Total Protein 6.9 Albumin 3.9 Urine Color Yellow Urine Appearance Clear Urine pH 6.0 Ur Specific [place] >= 1.030 H Urine Protein 100 (2+) H Urine Glucose (UA) Negative Urine Ketones Trace Urine Blood Negative Urine Nitrite Negative Ur Leukocyte Esterase Negative Urine RBC 0-2 Urine WBC 0-5 Ur Squamous Epith Cells 0-2 Urine Bacteria None Seen Hyaline Casts 0-2 Influenza Type A (PCR) NEGATIVE Influenza Type B (PCR) NEGATIVE RSV RNA Qual (PCR) NEGATIVE SARS-CoV-2 RNA (RT-PCR) NEGATIVE 01/04/25 14:02 MCV MCH MCHC RDW Plt Count MPV Immature Gran % (Auto) Neut % (Auto) Lymph % (Auto) [place] % (Auto) Eos % (Auto) Baso % (Auto) Lymph # (Auto) [place] # (Auto) Eos # (Auto) Baso # (Auto) Abs Immat Gran (auto) Absolute Neuts (auto) Absolute Nucleated RBC Nucleated RBC % (auto) Anion Gap Estim Creat Clear Calc Estimated GFR Random Glucose Lactic Acid 0.9 Calcium Magnesium Total Bilirubin AST ALT Alkaline Phosphatase Total Protein Albumin Urine Color Urine Appearance Urine pH Ur Specific [place] Urine Protein Urine Glucose (UA) Urine Ketones Urine Blood Urine Nitrite Ur Leukocyte Esterase Urine RBC Urine WBC Ur Squamous Epith Cells Urine Bacteria Hyaline Casts Influenza Type A (PCR) Influenza Type B (PCR) RSV RNA Qual (PCR) SARS-CoV-2 RNA (RT-PCR) <Elieser Fernandez PA-C - Last Filed: 01/05/25 08:36> Procedures Date of Service Date of Service: 01/05/25 <Elieser Fernandez PA-C - Last Filed: 01/05/25 08:36> 01/05/25 <Bong Callaway MD - Last Filed: 01/05/25 08:39> Progress Note: A&P Assessment and plan (1) Incarcerated left inguinal hernia: Status: Acute <Elieser Fernandez PA-C - Last Filed: 01/05/25 08:36> Assessment and Plan: 64 year old male admitted to [facility] for an incarcerated left inguinal hernia. Patient is scheduled for left inguinal hernia repair with mesh this afternoon. Patient is stable this morning. No new complaints. No current evidence of obstruction. Abdomen is non distended, he is passing flatus. Continues to have pain. Patient remains NPO. Continue NPO until post op, will advance as tolerated. Continue with pain regimen <Elieser Fernandez PA-C - Last Filed: 01/05/25 08:36> 64 year old male admitted to [facility] for an incarcerated left inguinal hernia. Patient is scheduled for left inguinal hernia repair with mesh this afternoon. Patient is stable this morning. No new complaints. No current evidence of obstruction. Abdomen is non distended, he is passing flatus. Continues to have pain. Patient remains NPO. Continue NPO until post op As noted above patient is on scheduled for repair of this incarcerated left inguinal hernia. I reviewed the procedure, risks, and alternatives of the repair of left inguinal hernia with mesh and he consents to the surgery. Discussed patient's care with the hospitalist team. He has a moderate risk for the proposed procedure and no further cardiac workup is required at this time. Pulmonology will be consulted for his COPD during this hospitalization as well. <Bong Callaway MD - Last Filed: 01/05/25 08:39> Time Spent With Patient Time: Total time managing care of this patient today ____ minutes. <Elieser Fernandez PA-C - Last Filed: 01/05/25 08:36> Quality Stroke Does the patient have a stroke diagnosis?: No <Elieser Fernandez PA-C - Last Filed: 01/05/25 08:36> VTE Prior VTE?: No <Elieser Fernandez PA-C - Last Filed: 01/05/25 08:36> VTE Risk Level:: Surgical - high <Elieser Fernandez PA-C - Last Filed: 01/05/25 08:36> VTE Device Contraindication: N/A - Device Ordered <Elieser Fernandez PA-C - Last Filed: 01/05/25 08:36> VTE Drug Contraindication: Treatment Not Indicated <Elieser Fernandez PA-C - Last Filed: 01/05/25 08:36>
--- NOTE | 2025-01-05 08:56 | P.CONPL_ITS ---
History of Present Illness History of Present Illness Consult date: 01/05/25 Chief complaint: left incarcerated inguinal hernia Narrative: This is an inpatient pulmonary consultation. The patient is a 64-year-old male with a PMH significant for COPD, 45 pack-year smoking hx, not on home medications or inhalers who presented to the ED with abdominal pain at the site left inguinal hernia. CT of abdomen and pelvis showed large left inguinal hernia containing a loop of incarcerated small bowel and small bowel mesentery. Pt was admitted to the hospital under general surgery services with hospitalist consult for medical management and preop clearance. Pt complains of left groin pain currently well-controlled with analgesics. Had nausea and vomiting earlier in the week but none for the past 2 days. Has not been eating or drinking much for the past 4 days. Pt denies any known medical issues other than COPD, though admits has not seen a PCP and over 10 years. Denies significant cardiac hx. Reports chronic SOB and nonproductive cough at baseline. The patient did have a CT scan of the abdomen which I personally reviewed did have some lung cuts that I can appreciate that the patient has some chronic airway disease some bronchiolitis treating budding likely from smoldering infections inflammation from the smoking history. He had been on inhalers before will go ahead and start him on Breo and the patient may able to continue the Levaquin for now for preemptively treat any infectious process prior to his surgery. Afterwards she should follow-up with Pulmonary and have formal imaging studies of the chest. Review of Systems 2 Constitutional: Constitutional: Denies chills and Denies fever(s) ENT: Denies dizziness Cardiovascular: Cardiovascular: Denies chest pain Respiratory: Respiratory: Reports cough Gastrointestinal: Gastrointestinal: Reports as per HPI Integumentary/Breasts: Skin/Breast: Denies rash and Denies skin pain Neurologic: Denies dizziness PMFSH Past Medical History Medical History (Updated 01/05/25 @ 09:03 by Howard Dent MD) Bronchiolitis COPD (chronic obstructive pulmonary disease) Social History Social History Household Members: Spouse Housing: House Do you presently have visiting nurse or other home services: No Alcohol intake: current Alcohol intake frequency: a few times a month Patient Tobacco Use Status: Current everyday Tobacco user Tobacco use type: Cigarette Cigarette Packs Per Day: 1 Cigarettes Per Day: 20.0 Substance Use Type: Marijuana Meds Allergies Allergy/AdvReac Type Severity Reaction Status Date / Time Penicillins [PCN] Allergy Unknown Verified 01/04/25 10:15 Active Medications: Current Medications Acetaminophen (Acetaminophen 325 Mg Tablet) 650 mg PO Q6H PRN PRN Reason: Pain, Mild 1-3,fever,headache Albuterol/Ipratropium (Albuterol/Iprat 2.5/0.5mg 3 Ml Ampul.Neb) 3 ml INHALE RQ4H WHILE AWAKE PRN PRN Reason: Shortness of Breath/Wheezing Calcium Carbonate (Calcium Carbonate 750 Mg Tab.Chew) 750 mg PO Q4H PRN PRN Reason: Heartburn Lactated Ringer's (Lr) 1,000 mls @ 80 mls/hr IVCONT .[id number] [facility] Last Admin: 01/05/25 05:58 Dose: 80 mls/hr Levofloxacin (Levaquin) 750 mg in 150 mls @ 100 mls/hr IV Q24H [facility] Last Infusion: 01/04/25 22:49 Dose: Infused Melatonin (Melatonin 3 Mg Tablet) 6 mg PO BEDTIME PRN PRN Reason: Insomnia Morphine Sulfate (Morphine Sulfate 4 Mg/Ml Cartridge) 2 mg IVPUSH Q4H PRN; Protocol PRN Reason: Pain, Severe (Pain Scale 7-10) Nicotine (Nicotine 21 Mg Patch.Td24) 21 mg TRANSDERMA DAILY [facility] Last Admin: 01/05/25 08:17 Dose: 21 mg Ondansetron HCl (Ondansetron Hcl 4 Mg/2 Ml Vial) 4 mg IVPUSH Q8H PRN PRN Reason: Nausea and Vomiting Oxycodone HCl (Oxycodone Hcl Immed Release 5 Mg Tablet) 5 mg PO Q6H PRN PRN Reason: Pain, Moderate(Pain Scale 4-6) Sodium Chloride (0.9 % Sodium Chloride Flush 3 Ml Syringe) 3 ml IVFLUSH QSHIFT [facility] Last Admin: 01/05/25 08:16 Dose: Not Given Home Medications ?Medication ?Instructions ?Recorded ?Confirmed ?Last Taken ?Type acetaminophen 325 mg tablet 650 mg PO Q4H PRN Pain 01/04/25 01/04/25 Unknown History (Tylenol) Physical Exam 2 Vital Signs: Vital Signs: Last Vital Signs Temp 98.6 F 05/09/25 07:36 Pulse 66 01/05/25 07:36 Resp 18 01/05/25 07:36 BP 108/63 01/05/25 07:36 Pulse Ox 97 01/05/25 07:36 O2 Del Method Room Air 01/05/25 07:36 BMI result Body Mass Index 18.6 Const: General: comfortable, no acute distress and alert O rientation/consciousness: patient oriented x3 Chest: Chest palpation & inspection: normal inspection of the chest Resp: Effort & Inspection: normal respiratory effort, able to speak in complete sentences, not labored and not tachypneic Auscultation: rhonchi and diminished lung sounds Cardio: Rate: regular rate GI: Inspection: No distended Palpation (GI): Soft to palpation, no guarding and not rigid Percussion: Yes normal to percussion Skin: General skin exam: no rashes or lesions noted Neuro: General: patient oriented x3 and moves all extremities Results Laboratory Findings 01/04/25 10:44 01/04/25 11:28 Abnormal lab findings: Abnormal Labs 01/04/25 01/04/25 01/04/25 10:44 11:28 11:59 WBC 13.2 H RBC 4.47 L Hgb 13.1 L Hct 37.6 L Neut % (Auto) 76.2 H Lymph % (Auto) 12.3 L Abs Immat Gran (auto) 0.05 H Absolute Neuts (auto) 10.0 H Sodium 134 L Anion Gap 10 L BUN 22 H Ur Specific [place] >= 1.030 H Urine Protein 100 (2+) H Assessment and Plan (1) COPD (chronic obstructive pulmonary disease): Qualifiers: COPD type: chronic bronchitis Chronic bronchitis type: mixed simple and mucopurulent Qualified Code(s): J41.8 - Mixed simple and mucopurulent chronic bronchitis Status: Acute (2) Bronchiolitis: Status: Acute Plan start Breo daily CHICHO as needed continue Levaquin x 8 days May proceed with surgery. outpt pulmonary f/u Procedures Date of Service Date of Service: 01/05/25
--- NOTE | 2025-01-05 09:10 | P.PNIM_ITS ---
Subjective Subjective Date of Service: 01/05/25 Interval History: No acute events overnight SOB mildly improved after breathing treatment Continues to experience intermittent left groin main, moderately well controlled on current analgesics Has been passing gas, no bowel movement since incarceration Denies nausea or vomiting Was seen by pulmonology who recommended daily inhalers, antibiotics, and follow up with pulmonology outpatient Review of Systems Review of Systems: Yes all other systems are reviewed and are negative Physical Exam 2 Vital Signs: Vital Signs: Last Vital Signs Temp 98.6 F 01/05/25 07:36 Pulse 66 01/05/25 07:36 Resp 18 01/05/25 07:36 BP 108/63 01/05/25 07:36 Pulse Ox 97 01/05/25 07:36 O2 Del Method Room Air 01/05/25 07:36 BMI result Body Mass Index 18.6 General: AOx3, no acute distress Resp: Diminished, mild diffuse rhonchi CVS: S1, S2, RRR GI: +BS, NT, no distention Skin: Warm, dry Neuro: Cranial nerves II-XII grossly intact bilaterally. Motor grossly intact bilaterally Extremities: No edema Psych: Appropriate affect Objective Data Active Medications Acetaminophen (Acetaminophen 325 Mg Tablet) 650 mg PO Q6H PRN PRN Reason: Pain, Mild 1-3,fever,headache Albuterol/Ipratropium (Albuterol/Iprat 2.5/0.5mg 3 Ml Ampul.Neb) 3 ml INHALE RQ4H WHILE AWAKE PRN PRN Reason: Shortness of Breath/Wheezing Calcium Carbonate (Calcium Carbonate 750 Mg Tab.Chew) 750 mg PO Q4H PRN PRN Reason: Heartburn Fluticasone/Vilanterol (Fluticasone/Vilanterol 200/25 Blst.W.Dev) 1 puff INHALE RDAILY [facility] Lactated Ringer's (Lr) 1,000 mls @ 80 mls/hr IVCONT .[id number] [facility] Last Admin: 01/05/25 05:58 Dose: 80 mls/hr Documented By: GINA Levofloxacin (Levaquin) 750 mg in 150 mls @ 100 mls/hr IV Q24H [facility] Last Infusion: 01/04/25 22:49 Dose: Infused Documented By: ANGELLA Melatonin (Melatonin 3 Mg Tablet) 6 mg PO BEDTIME PRN PRN Reason: Insomnia Morphine Sulfate (Morphine Sulfate 4 Mg/Ml Cartridge) 2 mg IVPUSH Q4H PRN; Protocol PRN Reason: Pain, Severe (Pain Scale 7-10) Nicotine (Nicotine 21 Mg Patch.Td24) 21 mg TRANSDERMA DAILY [facility] Last Admin: 01/05/25 08:17 Dose: 21 mg Documented By: VANDANA Ondansetron HCl (Ondansetron Hcl 4 Mg/2 Ml Vial) 4 mg IVPUSH Q8H PRN PRN Reason: Nausea and Vomiting Oxycodone HCl (Oxycodone Hcl Immed Release 5 Mg Tablet) 5 mg PO Q6H PRN PRN Reason: Pain, Moderate(Pain Scale 4-6) Sodium Chloride (0.9 % Sodium Chloride Flush 3 Ml Syringe) 3 ml IVFLUSH QSHIFT [facility] Last Admin: 01/05/25 08:16 Dose: Not Given Documented By: VANDANA Non-Admin Reason: IV Running Labs 01/04/25 10:44 01/04/25 11:28 Labs: Laboratory Results - last 24 hr 01/04/25 01/04/25 01/04/25 10:44 11:28 11:59 MCV 84.1 MCH 29.3 MCHC 34.8 RDW 14.2 Plt Count 282 MPV 9.4 Immature Gran % (Auto) 0.4 Neut % (Auto) 76.2 H Lymph % (Auto) 12.3 L [place] % (Auto) 9.1 Eos % (Auto) 1.5 Baso % (Auto) 0.5 Lymph # (Auto) 1.6 [place] # (Auto) 1.2 Eos # (Auto) 0.2 Baso # (Auto) 0.1 Abs Immat Gran (auto) 0.05 H Absolute Neuts (auto) 10.0 H Absolute Nucleated RBC 0.000 Nucleated RBC % (auto) 0.0 Anion Gap 10 L Estim Creat Clear Calc 72.6 Estimated GFR > 60 Random Glucose 88 Lactic Acid Calcium 9.1 Magnesium 2.1 Total Bilirubin 0.9 AST 21 ALT 10 Alkaline Phosphatase 79 Total Protein 6.9 Albumin 3.9 Urine Color Yellow Urine Appearance Clear Urine pH 6.0 Ur Specific [place] >= 1.030 H Urine Protein 100 (2+) H Urine Glucose (UA) Negative Urine Ketones Trace Urine Blood Negative Urine Nitrite Negative Ur Leukocyte Esterase Negative Urine RBC 0-2 Urine WBC 0-5 Ur Squamous Epith Cells 0-2 Urine Bacteria None Seen Hyaline Casts 0-2 Influenza Type A (PCR) NEGATIVE Influenza Type B (PCR) NEGATIVE RSV RNA Qual (PCR) NEGATIVE SARS-CoV-2 RNA (RT-PCR) NEGATIVE 01/04/25 14:02 MCV MCH MCHC RDW Plt Count MPV Immature Gran % (Auto) Neut % (Auto) Lymph % (Auto) [place] % (Auto) Eos % (Auto) Baso % (Auto) Lymph # (Auto) [place] # (Auto) Eos # (Auto) Baso # (Auto) Abs Immat Gran (auto) Absolute Neuts (auto) Absolute Nucleated RBC Nucleated RBC % (auto) Anion Gap Estim Creat Clear Calc Estimated GFR Random Glucose Lactic Acid 0.9 Calcium Magnesium Total Bilirubin AST ALT Alkaline Phosphatase Total Protein Albumin Urine Color Urine Appearance Urine pH Ur Specific [place] Urine Protein Urine Glucose (UA) Urine Ketones Urine Blood Urine Nitrite Ur Leukocyte Esterase Urine RBC Urine WBC Ur Squamous Epith Cells Urine Bacteria Hyaline Casts Influenza Type A (PCR) Influenza Type B (PCR) RSV RNA Qual (PCR) SARS-CoV-2 RNA (RT-PCR) Assessment and Plan (1) Incarcerated left inguinal hernia: Status: Acute Plan Pt is a 64-year-old male with a PMH significant for COPD, 45 pack-year smoking hx, not on home medications or inhalers who presented to the ED with abdominal pain at the site left inguinal hernia. CT of abdomen and pelvis showed large left inguinal hernia containing a loop of incarcerated small bowel and small bowel mesentery. Pt was admitted to the hospital under general surgery services with hospitalist consult for medical management and preop clearance. Incarcerated left inguinal hernia Plan as per General surgery with surgical repair planned for today RCRI 1 point, pt without significant cardiac hx, EKG showing normal sinus rhythm without significant ischemia There are no contraindications for the planned procedure, and no indication for additional workup or treatment prior to surgery Question of pneumonia Pt reports SOB and chronic mostly nonproductive cough at baseline CT showing small airway thickening, subpleural reticular opacities, nodular opacities, and centrilobular tree-in-bud type opacities suggestive of endobronchial spread of infection No sepsis: Leukocytosis likely reactionary, pt afebrile Will treat with Levaquin 750mg x8 days, started 01/04/2025 COPD Not in acute exacerbation Not on home inhalers Will start on Breo daily, CHICHO prn DuoNebs p.r.n. Incentive spirometry postop Pulmonology consult Follow up outpatient with pulmonology for dedicated imaging of the chest Nicotine dependence Continue nicotine patch Smoking cessation counseled Thank you for allowing us to participate in the care of this pt. We will continue to follow along with you. Quality Stroke Does the patient have a stroke diagnosis?: No VTE Prior VTE?: No VTE Risk Level:: Surgical - high VTE Device Contraindication: N/A - Device Ordered VTE Drug Contraindication: Treatment Not Indicated
--- NOTE | 2025-01-05 10:04 | PC.NURSE ---
Patient off unit for OR, Ring on ring finger, pt. stated won't come out, and dentures on.
--- NOTE | 2025-01-05 10:20 | HO.ANESPROP2 ---
[facility] Active Problems Active Problems: All Active Problems Bronchiolitis (Acute) COPD (chronic obstructive pulmonary disease) (Acute) Small bowel obstruction (Acute) Incarcerated left inguinal hernia (Acute) Past Medical History Medical History (Updated 01/05/25 @ 09:03 by Howard Dent MD) Bronchiolitis COPD (chronic obstructive pulmonary disease) Family History Family history of problems with anesthesia: No Surgical History History of Problems with Anesthesia: No Social History Social History Household Members: Spouse Housing: House Do you presently have visiting nurse or other home services: No Alcohol intake: current Alcohol intake frequency: a few times a month Patient Tobacco Use Status: Current everyday Tobacco user Tobacco use type: Cigarette Cigarette Packs Per Day: 1 Cigarettes Per Day: 20.0 Substance Use Type: Marijuana Meds Allergies Allergy/AdvReac Type Severity Reaction Status Date / Time Penicillins [PCN] Allergy Unknown Verified 01/04/25 10:15 Active Medications: Current Medications Acetaminophen (Acetaminophen 325 Mg Tablet) 650 mg PO Q6H PRN PRN Reason: Pain, Mild 1-3,fever,headache Albuterol Sulfate (Albuterol Sulfate 90 Mcg 8 Gm Inhaler) 2 puff INHALE RQ4H PRN PRN Reason: Shortness of Breath/Wheezing Albuterol/Ipratropium (Albuterol/Iprat 2.5/0.5mg 3 Ml Ampul.Neb) 3 ml INHALE RQ4H WHILE AWAKE PRN PRN Reason: Shortness of Breath/Wheezing Stop: 01/06/25 12:00 Calcium Carbonate (Calcium Carbonate 750 Mg Tab.Chew) 750 mg PO Q4H PRN PRN Reason: Heartburn Fluticasone/Vilanterol (Fluticasone/Vilanterol 200/25 Blst.W.Dev) 1 puff INHALE RDAILY [facility] Lactated Ringer's (Lr) 1,000 mls @ 80 mls/hr IVCONT .[id number] [facility] Last Infusion: 01/05/25 10:04 Dose: 0 mls/hr Levofloxacin (Levaquin) 750 mg in 150 mls @ 100 mls/hr IV Q24H [facility] Last Infusion: 01/04/25 22:49 Dose: Infused Melatonin (Melatonin 3 Mg Tablet) 6 mg PO BEDTIME PRN PRN Reason: Insomnia Morphine Sulfate (Morphine Sulfate 4 Mg/Ml Cartridge) 2 mg IVPUSH Q4H PRN; Protocol PRN Reason: Pain, Severe (Pain Scale 7-10) Nicotine (Nicotine 21 Mg Patch.Td24) 21 mg TRANSDERMA DAILY [facility] Last Admin: 01/05/25 08:17 Dose: 21 mg Ondansetron HCl (Ondansetron Hcl 4 Mg/2 Ml Vial) 4 mg IVPUSH Q8H PRN PRN Reason: Nausea and Vomiting Oxycodone HCl (Oxycodone Hcl Immed Release 5 Mg Tablet) 5 mg PO Q6H PRN PRN Reason: Pain, Moderate(Pain Scale 4-6) Sodium Chloride (0.9 % Sodium Chloride Flush 3 Ml Syringe) 3 ml IVFLUSH QSHIFT [facility] Last Admin: 01/05/25 08:16 Dose: Not Given Home Medications ?Medication ?Instructions ?Recorded ?Confirmed ?Last Taken ?Type acetaminophen 325 mg tablet 650 mg PO Q4H PRN Pain 01/04/25 01/04/25 Unknown History (Tylenol) Exam Height,Weight and Vital Signs: Height 5 ft 9 in Weight 57.1 kg Last Vital Signs Temp 98.6 F 01/05/25 07:36 Pulse 66 01/05/25 07:36 Resp 18 01/05/25 07:36 BP 108/63 01/05/25 07:36 Pulse Ox 97 01/05/25 07:36 O2 Del Method Room Air 01/05/25 07:36 Pertinent Lab Results Pertinent Lab Results: Laboratory Tests 01/04/25 01/04/25 01/04/25 10:44 11:28 11:59 WBC 13.2 H RBC 4.47 L Hgb 13.1 L Hct 37.6 L MCV 84.1 MCH 29.3 MCHC 34.8 RDW 14.2 Plt Count 282 MPV 9.4 Immature Gran % (Auto) 0.4 Neut % (Auto) 76.2 H Lymph % (Auto) 12.3 L [place] % (Auto) 9.1 Eos % (Auto) 1.5 Baso % (Auto) 0.5 Lymph # (Auto) 1.6 [place] # (Auto) 1.2 Eos # (Auto) 0.2 Baso # (Auto) 0.1 Abs Immat Gran (auto) 0.05 H Absolute Neuts (auto) 10.0 H Absolute Nucleated RBC 0.000 Nucleated RBC % (auto) 0.0 Sodium 134 L Potassium 3.5 Chloride 99 Carbon Dioxide 29 Anion Gap 10 L BUN 22 H Creatinine 0.84 Estim Creat Clear Calc 72.6 Estimated GFR > 60 Random Glucose 88 Lactic Acid Calcium 9.1 Magnesium 2.1 Total Bilirubin 0.9 AST 21 ALT 10 Alkaline Phosphatase 79 Total Protein 6.9 Albumin 3.9 Urine Color Yellow Urine Appearance Clear Urine pH 6.0 Ur Specific [place] >= 1.030 H Urine Protein 100 (2+) H Urine Glucose (UA) Negative Urine Ketones Trace Urine Blood Negative Urine Nitrite Negative Ur Leukocyte Esterase Negative Urine RBC 0-2 Urine WBC 0-5 Ur Squamous Epith Cells 0-2 Urine Bacteria None Seen Hyaline Casts 0-2 Influenza Type A (PCR) NEGATIVE Influenza Type B (PCR) NEGATIVE RSV RNA Qual (PCR) NEGATIVE SARS-CoV-2 RNA (RT-PCR) NEGATIVE 01/04/25 14:02 WBC RBC Hgb Hct MCV MCH MCHC RDW Plt Count MPV Immature Gran % (Auto) Neut % (Auto) Lymph % (Auto) [place] % (Auto) Eos % (Auto) Baso % (Auto) Lymph # (Auto) [place] # (Auto) Eos # (Auto) Baso # (Auto) Abs Immat Gran (auto) Absolute Neuts (auto) Absolute Nucleated RBC Nucleated RBC % (auto) Sodium Potassium Chloride Carbon Dioxide Anion Gap BUN Creatinine Estim Creat Clear Calc Estimated GFR Random Glucose Lactic Acid 0.9 Calcium Magnesium Total Bilirubin AST ALT Alkaline Phosphatase Total Protein Albumin Urine Color Urine Appearance Urine pH Ur Specific [place] Urine Protein Urine Glucose (UA) Urine Ketones Urine Blood Urine Nitrite Ur Leukocyte Esterase Urine RBC Urine WBC Ur Squamous Epith Cells Urine Bacteria Hyaline Casts Influenza Type A (PCR) Influenza Type B (PCR) RSV RNA Qual (PCR) SARS-CoV-2 RNA (RT-PCR) Airway Mallampati Class: II TM Dist: >3cm Neck ROM: Full Denture: Upper Heart: rrr Lungs: diminished BS at base, course BS left lobe Assessment and Plan Assessment Anesthesia Assessment: Anesthesia Plan Discussed and Chart Reviewed Final Anesthetic Review Family History of Problems with Anesthesia: No History of Problems with Anesthesia: No NPO: Yes ASA Class: III Final Preanesthetic Review: No Changes in Pt Med Stat, Meds/Allgs Chart Reviewed and Consent Obtained/Reviewed Patient Risk: Intermediate Procedure Risk: Low Anesthetic Plan Anesthetic Plan: GA Disposition: Standard PACU
--- NOTE | 2025-01-05 10:31 | PM.EVENT ---
Event Note Date of Service: 01/05/25 Event Note: History reviewed Patient with COPD, bronchiolitis Patient has had this large left inguinal hernia for over 10 years now Increasingly becoming more painful Abdomen soft and benign No nausea or vomiting CAT scan shows bowel-containing left inguino-scrotal hernia, large, not obstructed bowel loops I reviewed with him the technique of repair with mesh I explained the risks bleeding but not limited to bleeding, infections, bowel injury, recurrence, postop pain, as well as the benefits and alternatives I described this to him what to expect postoperatively He sas given consent Time Spent With Patient Time: Total time managing care of this patient today ____ minutes.
--- NOTE | 2025-01-05 12:11 | P.OP_ITS ---
Operative Note Operative Note Date of Service: 01/05/25 Narrative: Preop diagnosis: Large chronically incarcerated left inguinoscrotal hernia with bowel loops Postop diagnosis: The same Procedure: Repair of large chronically incarcerated left inguinoscrotal hernia with mesh Surgeon: Eliot Leong MD 1st Cream Buyer: AMADOU Fernandez The patient was a 64 year old male admitted because of pain on a very large left inguinoscrotal hernia containing bowel loops. This appeared to be chronically incarcerated. He was however non obstructed and this did not appear to be strangulated. He understood the technique of repair with mesh. He was aware of the risks, benefits, and alternatives. He was brought to the operating room and placed supine under general anesthesia via laryngeal mask airway. The left groin was prepped and draped in the usual sterile fashion. A surgical time-out was done. The patient was receiving scheduled antibiotics. After induction, I examined the left groin and there was note of a very large left inguinal scrotal hernia. However, with the patient relaxed under anesthesia, I was able to reduce the hernia contents from the scrotum through the inguinal canal. I infiltrated the planned line of incision. I made a short incision along an imaginary line from the anterior superior iliac spine to the pubic ramus with a blade 15. This was carried down through the full-thickness of the skin and subcutaneous fat. I was able to then visualize the external oblique aponeurosis. I carefully dissected this bluntly with gauze until was able to identify the external ring. The external ring was very large and I could see the hernia protruding through this all the way through the rest of the canal. I made an incision on the external oblique aponeurosis with electrocautery to open up the ring. I applied status on the divided edges of the aponeurosis. I then used blunt dissection my finger to create a pocket under the aponeurosis of the mesh placement I then proceeded to identify the hernia. There was note of a very large hernia and sac adherent to the cord. The sac appeared empty but very large and very adherent to the rest of the cord contents I bluntly dissected the cord contents along with the large hernia sac using my index finger until was able to pass a [place] drain around this. This Bernadette drain was used for retraction I carefully and bluntly dissected the sac until was able to clearly define this edges. I carefully this from the rest of the cord contents. There was note of extensive thickening due to fibrotic changes surrounding the cord because of the chronic incarceration. We therefore had to carefully separate the sac from the rest of the hernia making sure that we were not injuring the vas deferens and the accompanying vessels. We carefully the sac very gently. The sac was very thickened, fibrotic and edematous. This hernia sac was empty and there were no bowel loops seen. We were able to eventually reduce this large sac through the internal ring. Since this was a large weakened internal ring, I used an extra-large Prolene plug. I reinforced the internal ring secured the plug using its inner leaves to the internal oblique medially and superiorly and the shelving edge of the inguinal ligament laterally using Prolene 2-0 sutures There was note of oozing from where I had the sac from the cord so we had to carefully cauterize this and apply some Polysorb 3-0 ties to achieve hemostasis We irrigated. Once hemostasis was confirmed, I then positioned the keyhole mesh to the floor of the canal. The tails of the mesh were passed around the cord at the level of the internal ring and were secured together with Prolene 2 sutures. I flattened the mesh on the entire floor of the canal. I secured the mesh with a pubic ramus inferomedially, the internal oblique made medially as well as superiorly and the shelving edge of the inguinal meant laterally with Prolene 2 sutures. Once the mesh felt secure, I proceeded then irrigate. Hemostasis was confirmed. I removed the [place] drain. I closed the external oblique aponeurosis with Polysorb 2-0 running stitch to re-create the external ring The thin subcutaneous layer was reapposed with Polysorb 3-0 simple interrupted sutures. Skin closure was achieved with Polysorb 4-0 subcuticular running stitch The area was infiltrated with Marcaine 0.5% for postop analgesia. Dressings were applied and the procedure was completed The patient tolerated the procedure well. There were no immediate complications. Initial and final counts of sponges and instruments were correct. Estimated blood loss was less than 25 cc The patient was extubated without difficulty and transferred to the recovery room with stable vital signs.
--- NOTE | 2025-01-05 14:08 | PM.EVENT ---
Event Note Date of Service: 01/05/25 Event Note: Seen postop Underwent repair of a large inguino-scrotal hernia earlier with mesh Appears to have good pain control He says he feels well overall despite being sore on the incision area Looks well Stable vital signs He says he feels he should be able to go home later on today I reviewed with him the discharge instructions I will see him again in the office in about 2 weeks for a postop check His was with him during the visit and was comfortable with the plan Time Spent With Patient Time: Total time managing care of this patient today ____ minutes.
[2025-01-05] MEDS: oxyCODONE HCl Immed Release 5 MG TABLET PO (14:37)
[2025-01-05] MEDS: 0.9 % Sodium Chloride Flush 3 ML SYRINGE IVFLUSH (14:38)
--- NOTE | 2025-01-05 14:45 | MHC.CM.PN ---
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 PT DENIES USE OF DME/SERVICES. PC CONFIRMS HE HAS NO PCP AND [facility] PROVIDER LIST PROVIDED, PT EDUCATED ON AND COMPLETES A HCP NAMING HIS JORGE LUIS BUCIO [phone], PT PROVIDED W/EDUCATIONAL HANDOUT, ORIGINAL AND COPY UPLODED TO [facility] AND PLACED IN CHART.
--- NOTE | 2025-01-05 16:54 | P.DS_ITS ---
DS: Providers Provider Date of Service: 01/05/25 Date of admission: 01/04/25 14:56 Date of discharge: 01/05/25 Primary care physician: None Physician Attending physician on admission: Bong Callaway Consults: 01/04/25 13:31 Consult to General Surgery Stat Consulting Provider: [facility] Reason for consultation: incarcerated inguinal hernia + SBO Has provider been notified: Yes 01/04/25 18:26 Consult to Hospitalist Routine Comment: Consulting Provider: [facility] Reason For Exam: Incarcerated LIH, COPD, preop evaluation 01/04/25 20:40 Consult to Pulmonology Routine Consulting Provider: [facility] Reason for consultation: CT showing endobronchial infection, hx of COPD not o n inhalers Attending physician on discharge: Eliot Leong DS: Diagnosis Discharge Diagnosis (1) Incarcerated left inguinal hernia: Status: Acute DS: Summary Hospital Course Hospital Course: HPI AT ADMISSION: Ramírez Curran is a 64 year old male with PMH significant for COPD, smoker who presented to the ED with complaints of pain at his left inguinal hernia. He has had a left inguinal hernia for over 10 years that has been gradually increasing in size. It normally does not bother him and he can reduce it without difficulty. He however reports that over the past week he has had increasing pain at the hernia site and he has been unable to reduce it. Due to the pain, he presented to the ED where work up included CBC, BMP, LFTs which showed a mild leukocytosis. Lactic acid was normal. CT scan was performed which showed large left inguinal hernia containing a loop of incarcerated small bowel and small bowel mesentery. He had some associated nausea earlier this week but this resolved. He has been passing gas and having normal bowel movements. The pain is somewhat improved since earlier today. He does not have a primary care provider and has not seen a physician in multiple years. He reports some occasional shortness of breath with exertion at work when he does heavy lifting and upon lying flat. HOSPITAL COURSE: He was admitted to the surgical service for further treatment of the incarcerated left inguinal hernia. He had a large left inguinal hernia that was nonreducbile. Clinically, he is not obstructed without evidence of strangulation as lactic acid was normal. Recommended repair of the incarcerated left inguinal hernia with mesh tomorrow morning. Hospitalist consult was obtained for his COPD, perioperative risk stratification. RCRI 1 point. Pulmonology was also consulted for his COPD and he was started on Breo daily, CHICHO as needed. He was started on levaquin for total of 8 days for bronchiolitis. Smoking cessation encouraged. On 01/05/25, repair of large chronically incarcerated left inguinoscrotal hernia with mesh was performed by Dr. Leong without complication. The patient tolerated the procedure well. He was evaluated post operatively on the floor and was tolerating solid diet, had good pain control. He felt ready for discharge to home. He was discharged to home on 01/05/25 in stable condition. He was discharged on a course of oral levaquin. He is to follow up in the office in 2 weeks. He is to follow up with pulmonology outpatient. Status at Discharge Functional status at discharge: independent ambulation Overall status at discharge: patient is progressing back to baseline Time Attestation Discharge Coordination Time (in mins): 40 Quality: Safe Use of Opioids Does Pt have an Active Cancer Diagnosis on the Problem List?: No Quality: Stroke Does the patient have a stroke diagnosis?: No Physical Exam Vital Signs: Vital Signs: Last Vital Signs Temp 97.9 F 01/05/25 15:00 Pulse 79 01/05/25 15:00 Resp 16 01/05/25 15:00 BP 119/67 01/05/25 15:00 Pulse Ox 96 01/05/25 15:00 O2 Del Method Room Air 01/05/25 15:00 BMI result Body Mass Index 18.6 Const: General: comfortable, no acute distress and alert Orientation/consciousness: patient oriented x3 Resp: Effort & Inspection: normal respiratory effort, able to speak in complete sentences and not labored GI: Other: dressing clean and intact mild incisional tenderness Inspection: No distended Palpation (GI): Soft to palpation Skin: General skin exam: no rashes or lesions noted Neuro: General: patient oriented x3 and moves all extremities DS: Data Data Completed and Pending Completed studies during hospitalization [Text1]: Procedures Supplement Left Inguinal Region with Synthetic Substitute, Open Approach (01/04/25) Labs on day of discharge: Preliminary micro results at discharge 01/04/25 21:10 Blood Culture - Preliminary Blood - Venous No growth after 48 hours. 01/04/25 21:10 Blood Culture - Preliminary Blood - Venous No growth after 48 hours. Discharge Plan Discharge Anticipated Discharge Date/Time: 01/06/25 10:14 Patient Disposition: Home, Self-Care Discharge Diagnosis: s/p repair of large left inguinal hernia with mesh, right reducible inguinal hernia Referrals: Eliot Leong MD [Physician] - 2 Weeks Physician,None [Primary Care Provider] - 1 Week Howard Dent MD [Physician] - 1 Month Discharge Medications: New fluticasone furoate-vilanterol [Breo Ellipta] 200-25 mcg/dose Blister With Device 1 inh inhalation RDAILY Qty: 60 0RF albuterol sulfate [Ventolin HFA] 90 mcg/actuation Hfa Aerosol Inhaler 2 puff inhalation RQ4H PRN (Reason: Shortness Of Breath/Wheezing) Qty: 8.5 0RF levofloxacin 750 mg tablet 750 mg PO DAILY Qty: 6 0RF docusate sodium [Colace] 100 mg capsule 100 mg PO BID Qty: 30 0RF oxycodone 5 mg tablet 5 mg PO Q4H PRN (Reason: pain (scale score 7-10)) Qty: 26 0RF Rx Instructions: Partial Fill upon patient request. Continued acetaminophen [Tylenol] 325 mg Tablet 650 mg PO Q4H PRN (Reason: Pain) Discharge Orders: Discharge Order (Routine); Ordered 01/05/25 Ordered By: Eliot Leong Diet: Advance to usual diet Activity on Discharge: No heavy lifting Stand Alone Forms: Patient Portal Discharge page Print Language: Tajik Activity Restrictions/Additional Instructions: If the incision area is tender, you may apply an ice pack for short intervals (No more than 20 minutes on, followed by at least 20 minutes off). Do not apply heat. Do not use creams, lotions, or topical antibiotics. These can cause infection or allergic reaction. Ok to shower 48 hours after your surgery. Remove dressing prior. You have steri strips (small white cloth strips) covering your incision- these will fall off ~1 week. Take stool softeners (colace) twice a day as needed to avoid constipation. Follow up in office with Dr. Leong in 2 weeks. ([phone]) No heavy lifting (>10-20lbs) or strenuous activity! Call Your Doctor If: -Your temperature exceeds 101? F -You experience excessive pain or swelling -You have an unexpected reaction to medication -You have excessive bleeding -You experience continued vomiting/nausea -Your incision begins to separate -Your incision shows signs of infection such as increased redness, swelling, excessive pain, drainage (light blood or clear fluid is normal) or heat Care Plan Goals: Return to baseline health and resume normal activities following recovery period. Health Concerns: smoker, COPD bronchiolitis large left inguinal hernia right inguinal hernia Plan of Treatment: s/p repair of left inguinal hernia with mesh PO antibiotics F/u in office with Dr. Leong in 2 weeks. F/u with PCP and pulmonology for further treatment of COPD Smoking cessation Assessment: Doing well post op. Discharge Date/Time: 01/05/25 17:54
== END 2025-01-05 17:54 | disposition home or self-care (01) | DRG 228 ==
LOC: HO.ED 14:45 → HO.EDOVER 14:58 → HO.S3 17:11
PROVIDERS: Physician Assistant Medical; Surgery; Emergency Provider Emergency Medicine Emergency Medical Services; Visit Provider Surgery
PROC: 0YU60JZ Supplement Left Inguinal Region with Synthetic Substitute, Open Approach (ICD-10-PCS; principal; 2025-01-05 13:00)
DX: K40.30 Unilateral inguinal hernia, with obstruction, without gangrene, not specified as recurrent (principal); J18.9 Pneumonia, unspecified organism; F17.210 Nicotine dependence, cigarettes, uncomplicated; Z71.6 Tobacco abuse counseling; J44.0 Chronic obstructive pulmonary disease with (acute) lower respiratory infection; Z20.822 Contact with and (suspected) exposure to COVID-19; Z79.51 Long term (current) use of inhaled steroids; Z79.899 Other long term (current) drug therapy
CPT/HCPCS: 0241U; 36415; 74177; 80053; 81001; 83605; 83735; 85025; 87040; 93005; 94640; 99285; C1781; J1100; J1885; J1956; J2003; J2250; J2270; J2405; J2704; J2795; J3010; J7120; Q9967

== ENCOUNTER → 2025-01-04 10:28 | Outpatient (BNV) | payer OTHER, SELFPAY | PROVIDERS: Emergency Provider Emergency Medicine Emergency Medical Services; Visit Provider Internal Medicine | DX: R10.9 Unspecified abdominal pain (principal) | CPT/HCPCS: 93010 ==

== ENCOUNTER → 2025-01-04 10:53 | Outpatient (BNV) | payer OTHER, SELFPAY | PROVIDERS: Visit Provider Radiology Diagnostic Radiology | DX: K40.90 Unilateral inguinal hernia, without obstruction or gangrene, not specified as recurrent (principal) | CPT/HCPCS: 74177 ==

== ENCOUNTER → 2025-01-04 14:56 | Outpatient (BNV) | payer OTHER, SELFPAY | PROVIDERS: Emergency Provider Emergency Medicine Emergency Medical Services; Visit Provider Hospitalist | DX: J41.8 Mixed simple and mucopurulent chronic bronchitis (principal); J21.9 Acute bronchiolitis, unspecified | CPT/HCPCS: 99223 ==

== ENCOUNTER → 2025-01-04 14:56 | Outpatient (BNV) | payer OTHER, SELFPAY | PROVIDERS: Emergency Provider Emergency Medicine Emergency Medical Services; Visit Provider Physician Assistant Surgical | DX: K40.30 Unilateral inguinal hernia, with obstruction, without gangrene, not specified as recurrent (principal) | CPT/HCPCS: 99222 ==

== ENCOUNTER → 2025-01-04 14:56 | Outpatient (BNV) | payer OTHER, SELFPAY | PROVIDERS: Emergency Provider Emergency Medicine Emergency Medical Services; Visit Provider Student in an Organized Health Care Education/Training Program | DX: K40.30 Unilateral inguinal hernia, with obstruction, without gangrene, not specified as recurrent (principal) | CPT/HCPCS: 99223; 99232 ==

== ENCOUNTER 2025-01-07 06:51 | Emergency (ER) | payer OTHER, SELFPAY ==
[2025-01-07 07:00] VITALS: BP 130/72; PULSE 70; RESP 19; TEMP 36.6; O2SAT 99; BMI 18.7
--- NOTE | 2025-01-07 07:47 | ED.ABDPAIN ---
HPI - Abdominal Pain General Chief Complaint: Abdominal Pain Stated Complaint: hernia repaired wednesday / having pain Time Seen by Provider: 01/07/25 07:21 History of Present Illness HPI narrative: Patient is a 63-year-old male had hernia surgery done on Wednesday. Complaining of swelling over the left testicle area. There is no fever no chills. No Nausea,vomiting. Patient is from home. No cough no congestion upper respiratory symptoms. No diaphoresis. passing gas. Related Data Home Medications ?Medication ?Instructions ?Recorded ?Confirmed acetaminophen 325 mg tablet 650 mg PO Q4H PRN Pain 01/04/25 01/04/25 (Tylenol) Previous Rx's ?Medication ?Instructions ?Recorded albuterol sulfate 90 mcg/actuation 2 puff inhalation RQ4H PRN 01/05/25 aerosol inhaler (Ventolin HFA) Shortness Of Breath/Wheezing #8.5 grams docusate sodium 100 mg capsule 100 mg PO BID #30 caps 01/05/25 (Colace) fluticasone furoate 200 1 inh inhalation RDAILY #60 ea 01/05/25 mcg-vilanterol 25 mcg/dose inhalation powder (Breo Ellipta) levofloxacin 750 mg tablet 750 mg PO DAILY #6 tabs 01/05/25 oxycodone 5 mg tablet 5 mg PO Q4H PRN pain (scale score 01/05/25 7-10) #26 tabs Allergies Allergy/AdvReac Type Severity Reaction Status Date / Time Penicillins [PCN] Allergy Unknown Verified 01/07/25 07:03 Review of Systems Review of Systems positive pain to the right inguinal area PMFSH Past Medical History Attestation statement: The following information was validated with the patient. Medical History Bronchiolitis COPD (chronic obstructive pulmonary disease) Social History Social History Household Members: Spouse Housing: House Are you a primary live in caregiver to a significant other at home: No Do you presently have visiting nurse or other home services: No Unable to assess alcohol history related to: Unknown Alcohol intake: current Alcohol intake frequency: does not drink Comment: COUNTS CORRECT Patient Tobacco Use Status: Current everyday Tobacco user Tobacco use type: Cigarette Cigarette Packs Per Day: 1 Cigarettes Per Day: 20.0 Smoked in Last 30 Days: Yes Use of substances other than those prescribed or required for medical reasons: No Substance Use Type: Marijuana Advance Directives: No Advance Directives Information Provided: No Do you have a plan to hurt others: No Plan service: No Physical Exam ED Vital Signs: Vital Signs - 24 hr 01/07/25 07:00 Temperature 98 F Pulse Rate 70 Respiratory Rate 19 Blood Pressure 130/72 Pulse Oximetry 99 Oxygen Delivery Method Room Air BMI result Body Mass Index 18.7 Appearance: Alert. Oriented X3. No acute distress. Eyes: Pupils equal, round and reactive to light. ENT: Pharynx normal. Neck: Normal inspection. Neck supple. No lymph nodes noted. No crepitus CVS: Normal heart rate and rhythm. Pulses normal. Normal S1 and S2 Respiratory: No respiratory distress. Breath sounds normal. No Wheezing. No rales Abdomen: Soft and nontender. No rigidity. No distention. good BS x4 Skin: Skin warm and dry. Normal skin color. Normal skin turgor. in the left inguinal area the dressing is intact. The wound itself is intact there is no erythema there is no discharge. There is swelling around the inguinal area there is swelling in the left Scrotum. Cremasteric reflexes intact. Extremities: No lower extremity edema. Neurovascular intact to all extremities. No Lacerations. No Rash Neuro: Oriented X 3. No motor deficit. No sensory deficit. Moving all extermities. No slurred speech Medical Decision Making Medical Decision Making [facility] Narrative: Patient is 64 years old had hernia surgery 2 days prior. There is no fever no chills otherwise well-appearing we had surgery evaluate patient. Grossly there is no signs of infection reassured. Patient to be discharged home. Passing gas. No redness no signs of infection. Patient to be discharged home Differential Diagnosis Differential Diagnoses: The differential diagnosis associated with the presentation includes hernia repair, infection, obstruction Admission/Observation Consideration of admission/observation: Escalation of care including admission/observation considered Consult Healthcare Provider Management of the patient was discussed with: Crm Functional Analyst ( surgery) Lab Data [facility] Lab Attestation statement: I reviewed the patient's lab results. External Record Review External record reviewed: Inpatient record Chronic Conditions hernia repair 2 days per Discharge Plan Discharge Clinical Impression: Inguinal hernia Patient Disposition: Home, Self-Care Instructions: Inguinal Hernia (ED), Inguinal Hernia Repair (DC) Prescriptions: No Action acetaminophen [Tylenol] 325 mg Tablet 650 mg PO Q4H PRN (Reason: Pain) fluticasone furoate-vilanterol [Breo Ellipta] 200-25 mcg/dose Blister With Device 1 inh inhalation RDAILY Qty: 60 0RF albuterol sulfate [Ventolin HFA] 90 mcg/actuation Hfa Aerosol Inhaler 2 puff inhalation RQ4H PRN (Reason: Shortness Of Breath/Wheezing) Qty: 8.5 0RF levofloxacin 750 mg tablet 750 mg PO DAILY Qty: 6 0RF docusate sodium [Colace] 100 mg capsule 100 mg PO BID Qty: 30 0RF oxycodone 5 mg tablet 5 mg PO Q4H PRN (Reason: pain (scale score 7-10)) Qty: 26 0RF Rx Instructions: Partial Fill upon patient request. Referrals: Eliot Leong MD [Physician] - 01/09/25 Print Language: Albanian
--- NOTE | 2025-01-07 08:17 | PM.EVENT ---
Event Note Date of Service: 01/07/25 Event Note: To evaluate patient in the emergency department for swelling of the left testicle. Patient examined. Has apparent seroma at the site of his previous scrotal hernia. No erythema, no ecchymosis. No bleeding or discharge from the incision. No changes noted with Valsalva maneuvers. Impression: Small seroma associated with the large scrotal hernia with no evidence of infection or hematoma Suggest wearing tight underwear or scrotal support, ice and elevation Call office on Wednesday for follow-up appointment. Discussed with Dr. Wilde. Time Spent With Patient Time: Total time managing care of this patient today ____ minutes.
[2025-01-07 09:19] VITALS: BP 127/66; PULSE 68; RESP 19; TEMP 36.6; O2SAT 99
[2025-01-07 09:21] VITALS: BP 127/66; PULSE 68; RESP 19; TEMP 36.6; O2SAT 99
== END 2025-01-07 09:22 | disposition home or self-care (01) ==
PROVIDERS: Emergency Provider Emergency Medicine Emergency Medical Services
DX: K40.90 Unilateral inguinal hernia, without obstruction or gangrene, not specified as recurrent (principal); R10.2 Pelvic and perineal pain
CPT/HCPCS: 99282; 99284

== ENCOUNTER 2025-01-25 10:59 | Outpatient (AMB) | payer OTHER, SELFPAY ==
--- NOTE | 2025-01-25 11:01 | MHC.OFFVIS ---
Vital Signs 01/25/25 11:09 Height 5 ft 10 in Weight 129 lb 2 oz BMI 18.5 BP 116/70 Blood Pressure Location Lt brachial Position Sitting Pulse 70 Intake Visit Reasons: s/p hernia repair Intake Note: Patient is seen in office for post op assessment post left inguino scrotal hernia repair. Pt c/o: denies any concerns Prepress Operator Required: No Accompanied by: Self / Same As Patient Allergies Penicillins [PCN] Allergy (Verified 01/25/25 11:09) Unknown HPI HPI s/p hernia repair: Details: patient reports he is doing well, feels as though he is getting better every day. he states that in the first few days after the procedure, he had some swelling of the scrotum and was seen in the ED. States Dr. Callaway reassured him that this was normal. Otherwise he is doing well, has some mild pain with some movements. Reports bowel function is at baseline. Appetite has returned to normal. He denies discharge, redness, swelling at the incision site. Denies fever or chills. He plans to return to work on 02/05/25. [facility] Medical History Bronchiolitis COPD (chronic obstructive pulmonary disease) Surgical History Hx of hernia repair (01/05/25) Social History Household Members: Spouse Housing: House Are you a primary healthcare administration internship to a significant other at home: No Do you presently have visiting nurse or other home services: No Unable to assess alcohol history related to: Unknown Alcohol intake: current Alcohol intake frequency: does not drink Comment: COUNTS CORRECT Patient Tobacco Use Status: Current everyday Tobacco user Tobacco use type: Cigarette Cigarette Packs Per Day: 1 Cigarettes Per Day: 20.0 Substance Use Type: Marijuana service: No Review of Systems Const All systems reviewed & are unremarkable except as noted in HPI and below Physical Exam Vital Signs: Last Vital Signs Pulse 70 01/25/25 11:09 BP 116/70 01/25/25 11:09 BMI result Body Mass Index 18.5 Const General: comfortable and no acute distress Resp Effort & Inspection: normal respiratory effort and able to speak in complete sentences GI Other: left inguinal hernia repair site visualized. Site is intact and dry. No surrounding erythema, edema or discharge. No palpable fluid collection Palpation (GI): Soft to palpation, not firm, Tenderness to palpation present (GI) (mild incisional site tenderness), no guarding and not rigid Other: Mild scrotal swelling, able to palpate both testes Assessment & Plan Assessment & Plan (1) S/P inguinal hernia repair: Comment: Left Code(s): Z98.890 - Other specified postprocedural states; Z87.19 - Personal history of other diseases of the digestive system Category: Medical Plan 64 year old male s/p left inguinal hernia repair with mesh on 01/05/25 presents to the office for initial follow up. Patient is overall doing well. Pain appropriate, is well controlled with OTC pain medication. Bowel function and appetite at baseline. Incision site appears to be healing well. No concern for infection. I recommended continuing with activity limitations, no heavy lifting greater than 15-20 pounds. Discussed returning to work with patient, he plans to return on 02/05/25, will be just over 1 month post op. I recommended slowly returning to activity. 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 I suggested that he try to avoid this if at all possible when returning to work and make smaller trips when making deliveries. Patient will return in 2 weeks for follow up. Patient can return sooner as needed Medications: Discontinued oxycodone Partial Fill upon patient request. Discontinued Reason: Patient Completed Course 5 mg PO Q4H PRN 26 tabs 0RF pain (scale score 7-10) Coding Level of Care Code Global (92182) Diagnoses S/P inguinal hernia repair Z98.890; Z87.19
[2025-01-25 11:09] VITALS: BP 116/70; PULSE 70; BMI 18.5
== END 2025-01-25 11:26 | disposition home or self-care (01) ==
LOC: HO.HGS 11:00
DX: Z98.890 Other specified postprocedural states (principal); Z87.19 Personal history of other diseases of the digestive system
CPT/HCPCS: 99024

== ENCOUNTER 2025-02-07 11:01 | Outpatient (AMB) | payer OTHER, SELFPAY ==
--- NOTE | 2025-02-07 11:03 | A.OFFVIS_ITS ---
Vital Signs 02/07/25 11:23 Height 5 ft 10 in Weight 130 lb 6 oz BMI 18.7 BP 130/70 Blood Pressure Location Lt brachial Position Sitting Pulse 70 Intake Visit Reasons: s/p hernia repair Intake Note: Patient is seen in office for post op assessment post left inguinal hernia repair. Pt c/o: pain now and then, burning sensation at times Classification Case Manager Required: No Accompanied by: Self / Same As Patient Allergies Penicillins [PCN] Allergy (Verified 02/07/25 11:24) Unknown HPI HPI s/p hernia repair: Details: Patient reports he is doing well overall. He experiences occasional bouts of intermittent stabbing pain at the incision site, even sometimes at rest. He reports that much of the swelling has improved since his last visit. 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 He reports he was a little sore after the 1st day back to work but feels like he is still doing well. He denies fever or chills. Bowel function and appetite are at baseline. [facility] Medical History Bronchiolitis COPD (chronic obstructive pulmonary disease) Surgical History Hx of hernia repair (01/05/25) Social History Household Members: Spouse Housing: House Are you a primary palliative care specialist to a significant other at home: No Do you presently have visiting nurse or other home services: No Unable to assess alcohol history related to: Unknown Alcohol intake: current Alcohol intake frequency: does not drink Comment: COUNTS CORRECT Patient Tobacco Use Status: Current everyday Tobacco user Tobacco use type: Cigarette Cigarette Packs Per Day: 1 Cigarettes Per Day: 20.0 Substance Use Type: Marijuana service: No Review of Systems Const All systems reviewed & are unremarkable except as noted in HPI and below Denies chills and Denies fever(s) Skin/Breast Details: Denies discharge from incision site Physical Exam Vital Signs: Last Vital Signs Pulse 70 02/07/25 11:23 BP 130/70 02/07/25 11:23 BMI result Body Mass Index 18.7 Const General: comfortable and no acute distress Orientation/consciousness: patient oriented x3 Resp Effort & Inspection: normal respiratory effort and able to speak in complete sentences GI Other: Left inguinal hernia repair site appears to be healing well. No surrounding erythema no palpable fluid collection, no warmth. No evidence of recurrence with increased abdominal pressure. Mild tenderness to palpation. No edema noted Inspection: Yes normal to inspection Palpation (GI): Soft to palpation Neuro General: patient oriented x3 Assessment & Plan Assessment & Plan (1) S/P inguinal hernia repair: Comment: Left Code(s): Z98.890 - Other specified postprocedural states; Z87.19 - Personal history of other diseases of the digestive system Category: Medical Plan 64-year-old male status post left inguinal hernia repair with mesh on 01/05/2025 reports to the office for routine one-month follow-up. Patient is overall doing well. Bowel function and appetite at baseline. Denies fever or chills, drainage from incision. Experiencing intermittent sharp pain at the incision site. I reassured him that this is a normal finding and that this should improve with time. On exam the incision site appears to be healing well, incision site is intact, no concern for infection. Mild pain to palpation. No evidence of recurrence with increased abdominal pressure on exam. 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 He did experience some soreness after the 1st few days of work but believes that this is manageable. I offered to excuse him from work for a few more weeks our the patient states that he can not do that due to financial reasons and we will continue to take things slow and avoid significant heavy lifting. At this point, the patient does not have any activity restrictions however recommended continuing with this plan to take things slow. I would like to see the patient in about a month for follow-up due to his intermittent pain. Recommended using Tylenol and ibuprofen as needed for pain. Patient can follow-up sooner with any concerns Coding Level of Care Code Global (25906) Diagnoses S/P inguinal hernia repair Z98.890; Z87.19
[2025-02-07 11:23] VITALS: BP 130/70; PULSE 70; BMI 18.7
== END 2025-02-07 11:29 | disposition home or self-care (01) ==
LOC: HO.HGS 11:01
DX: Z98.890 Other specified postprocedural states (principal); Z87.19 Personal history of other diseases of the digestive system
CPT/HCPCS: 99024

== ENCOUNTER 2025-03-21 08:52 | Outpatient (AMB) | payer OTHER, SELFPAY ==
--- NOTE | 2025-03-21 09:27 | MHC.OFFVIS ---
Vital Signs 03/21/25 09:30 Height 5 ft 10 in Weight 131 lb 8 oz BMI 18.9 BP 130/72 Blood Pressure Location Lt brachial Position Sitting Pulse 64 Intake Visit Reasons: 1m s/p hernia repair Intake Note: Patient is seen in office for one month follow up visit, post left inguinal hernia repair. 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 He denies any incisional pain. He is back to work without any restrictions. He is tolerating a solid diet and moving his bowels normally. He has no concerns. [facility] Medical History Bronchiolitis COPD (chronic obstructive pulmonary disease) Surgical History Hx of hernia repair (01/05/25) Social History Household Members: Spouse Housing: House Are you a primary client care manager to a significant other at home: No Do you presently have visiting nurse or other home services: No Unable to assess alcohol history related to: Unknown Alcohol intake: current Alcohol intake frequency: does not drink Comment: COUNTS CORRECT Patient Tobacco Use Status: Current everyday Tobacco user Tobacco use type: Cigarette Cigarette Packs Per Day: 1 Cigarettes Per Day: 20.0 Substance Use Type: Marijuana service: No Review of Systems Const All systems reviewed & are unremarkable except as noted in HPI and below Physical Exam Vital Signs: Last Vital Signs Pulse 64 03/21/25 09:30 BP 130/72 03/21/25 09:30 BMI result Body Mass Index 18.9 Const General: comfortable, no acute distress and alert Orientation/consciousness: patient oriented x3 Resp Effort & Inspection: normal respiratory effort and able to speak in complete sentences GI Other: left inguinal hernia repair incision well healed, no edema or erythema, no evidence of recurrence Skin General skin exam: no rashes or lesions noted Neuro General: patient oriented x3 and moves all extremities Assessment & Plan Assessment & Plan (1) S/P inguinal hernia repair: Comment: Left Code(s): Z98.890 - Other specified postprocedural states; Z87.19 - Personal history of other diseases of the digestive system Category: Surgical Plan He is 10 weeks s/p repair of large chronically incarcerated left inguinoscrotal hernia with mesh. He is doing well and is back to work full duty without any pain. Incision site is well healed without any evidence of infection or hernia recurrence. He has no concerns and can follow up as needed at this point. Patient comfortable with plan. Coding Level of Care Code Global (92253) Diagnoses S/P inguinal hernia repair Z98.890; Z87.19
[2025-03-21 09:30] VITALS: BP 130/72; PULSE 64; BMI 18.9
== END 2025-03-21 09:55 | disposition home or self-care (01) ==
DX: Z98.890 Other specified postprocedural states (principal); Z87.19 Personal history of other diseases of the digestive system
CPT/HCPCS: 99024

== ENCOUNTER → 2025-03-21 08:52 | Outpatient (BNVA) | payer OTHER, SELFPAY | DX: Z48.815 Encounter for surgical aftercare following surgery on the digestive system (principal); Z87.19 Personal history of other diseases of the digestive system | CPT/HCPCS: 99212 ==

== ENCOUNTER → 2025-04-11 22:49 | Outpatient (BNV) | payer OTHER, SELFPAY | PROVIDERS: Emergency Provider Emergency Medicine; Visit Provider Radiology Diagnostic Radiology | DX: R06.02 Shortness of breath (principal) | CPT/HCPCS: 71045 ==

== ENCOUNTER 2025-04-11 23:19 | Emergency (ER) | payer OTHER, SELFPAY ==
--- NOTE | ~2025-04-11 | XR_ITS ---
CLINICAL HISTORY: sob 1 view chest x-ray. Comparison: CT/NE/SR - CT ABDOMEN PELVIS W IV CON - 01/04/25 12:25 EDT Findings: There is emphysema and hyperinflation. There are bilateral reticulonodular opacities greatest in the upper lobes likely secondary to atypical infection including tuberculosis. There were tree-in-bud nodules in the lung bases on the prior CT of the abdomen and pelvis suggesting a chronic atypical infection. There are nodules or nodular consolidation in the right upper lobe which may be part of the same presumed chronic infectious process, superimposed acute infection, or malignancy. Comparison with prior imaging or chest CT is recommended. Heart size is normal. IMPRESSION: Findings as above. This document has been electronically signed by: Aadrsh Marcos MD on 04/12/2025 01:43:45
--- NOTE | ~2025-04-11 | CT_ITS ---
CLINICAL HISTORY: atypical lung infection vs malignancy CT chest with contrast Comparison: None provided Findings: The heart size is normal. The visualized thyroid and mediastinum are unremarkable. There is moderate centrilobular and paraseptal emphysema. Multi areas of consolidation are noted particularly along the lung periphery and centrally within the right upper lobe. There also areas of parenchymal scarring and cicatrization particularly in the upper lobes. Scattered tree-in-bud opacities are also present compatible with bronchiolitis. Bronchial wall thickening is seen in the lower lobes with areas of mucous plugging. The visualized upper abdomen is unremarkable. The bones are intact. IMPRESSION: 1. Moderate centrilobular and paraseptal emphysema associated with scattered areas of mostly peripheral consolidation interspersed with areas of parenchymal scarring and cicatrization. 2. Bronchitis and bronchiolitis with mucous plugging in the lower lobes. This document has been electronically signed by: Neri Dasilva MD on 04/12/2025 05:40:28
[2025-04-11 23:27] VITALS: BP 130/74; PULSE 87; RESP 16; TEMP 36.4; O2SAT 98; BMI 18.7
[2025-04-11] MEDS: iohexoL 350 MG/ML 100 ML INFUS..BTL 85 ML IV (23:40)
[2025-04-11 23:47] LABS: MANUAL DIFF FLAG NO
[2025-04-11 23:48] LABS: Hematocrit 43.3 % (42.0-52.0); Hemoglobin 14.9 g/dl (14.0-18.0); Imm Gran Abs Auto 0.02 X10*3/uL (0.00-0.03); Imm Gran Pct Auto 0.2 % (0.0-0.4); Lymphocytes Absolute Auto 1.6 X10*3/uL (1.2-4.9); Mean Corpuscular HGB Conc 34.4 g/dl (31.0-36.0); Mean Corpuscular Hemoglobin 29.9 pg (27.0-33.0); Mean Corpuscular Volume 86.8 fL (80.0-98.0); NRBC Abs Auto 0.000 X10*3/uL (0.0-0.012); NRBC Pct Auto 0.0 /100WBC (0.0-0.2); Platelet Count 306 X10*3/uL (160-400); Red Blood Count 4.99 X10*6/uL (4.60-5.80); White Blood Count 9.8 X10*3/uL (4.8-10.8)
[2025-04-12 00:05] LABS: Alanine Aminotransferase 11 U/L (0-40); Albumin Level 4.6 g/dL (3.5-5.0); Alkaline Phosphatase 107 U/L (39-117); Anion Gap 13 (12-20); Aspartate Amino Transferase 22 U/L (5-37); Blood Urea Nitrogen 14 mg/dL (9-16); Calcium 9.3 mg/dL (8.4-10.2); Carbon Dioxide 26 mmol/L (22-29); Chloride 104 mmol/L (96-108); Creatinine Clr Calc Pharmacy 72.4; Estimated Glomerular Filt Rate > 60; Potassium 3.9 mmol/L (3.3-5.1); Sodium 139 mmol/L (135-145); Total Protein 7.7 g/dL (6.5-8.0)
[2025-04-12 00:25] VITALS: BP 139/80; PULSE 74; RESP 16; O2SAT 96
--- NOTE | 2025-04-12 00:26 | PC.NURSE ---
Patient reports having COPD, smokes cigarettes daily. Does not have a primary care doctor, and does not take any medications regularly. 95% on RA.
--- NOTE | 2025-04-12 00:29 | PC.NURSE ---
Patients lungs auscultated with wheezing in bilateral lungs. Denies any recent illness or feeling sick. Denies any changes to daily activities or health. Stating SOB started three days ago randomly and has progressively gotten worse.
--- NOTE | 2025-04-12 01:39 | PC.NURSE ---
Updated patient that we are currently waiting for his CXR to be read. Patient waiting patiently in [facility]. Alert and oriented, able to make needs known.
[2025-04-12 01:57] VITALS: BP 115/78; PULSE 61; TEMP 36.7; O2SAT 95
--- NOTE | 2025-04-12 02:35 | ED_ITS ---
HPI - SOB/Dyspnea General Chief Complaint: Dyspnea Stated Complaint: Difficulty Breathing Time Seen by Provider: 04/12/25 01:55 Source: patient Mode of arrival: ambulatory Limitations: no limitations History of Present Illness ED Provider: Dr. Queenie Tanner HPI Narrative: Patient comes to the emergency room complaining of shortness of breath. Patient states that he was hospitalized for COPD in mid December of 2023. Patient was discharged with some home medications and since then, he ran out of his inhalers. Patient denies any chest pain. Denies any weight loss, no night fevers , denies any fever or chills to his knowledge. Related Data Home Medications ?Medication ?Instructions ?Recorded ?Confirmed acetaminophen 325 mg tablet 650 mg PO Q4H PRN Pain 04/2301/04/25 (Tylenol) Previous Rx's ?Medication ?Instructions ?Recorded albuterol sulfate 90 mcg/actuation 2 puff inhalation R Q4H PRN 01/05/25 aerosol inhaler (Ventolin HFA) Shortness Of Breath/Whe ezing #8.5 grams docusate sodium 100 mg capsule 100 mg PO BID #30 caps 01/05/25 (Colace) fluticasone furoate 200 1 inh inhalation RDAILY #60 ea 01/05/25 mcg-vilanterol 25 mcg/dose inhalation powder (Breo Ellipta) levofloxacin 750 mg tablet 750 mg PO DAILY #6 tabs 05/24 albuterol sulfate 90 mcg/actuation 2 puff inhalation Q 4-6H PRN 04/12/25 aerosol inhaler (Ventolin HFA) shortness of breath or wheezing #8.5 grams benzonatate 100 mg capsule 100 mg PO TID PRN cough #12 caps 04/12/25 levofloxacin 500 mg tablet 500 mg PO DAILY #7 tabs prednisone 50 mg tablet 50 mg PO DAILY #4 tabs 04/12 Allergies Allergy/AdvReac Type Severity Reaction Status Date / Time Penicillins (PCN) Allergy Unknown Verified 04/11/25 23:31 Review of Systems 2 Review of Systems: Constitutional : No Weight loss, No Fever, No Chills, No Night Sweats, No Fatigue, No Malaise ENT/Mouth : No Hearing loss, No Ear Pain, No Nasal Congestion, No Sinus Pain, No Hoarseness, No sore throat, No Rhinorrhea, No Swallowing Difficulty Eyes: No Eye Pain, No Swelling, No Redness, No Foreign Body, No Discharge, No Vision Changes Cardiovascular : No Chest Pain, No SOB, No Dyspnea on Exertion, No Orthopnea, No Edema, No Palpitations Respiratory : Complaining of productive cough, wheezing, chest tightness with no pain, shortness of breath Gastrointestinal : No Nausea, No Vomiting, No Diarrhea, No Constipation, No abdominal Pain, No Hematochezia, No Melena Genitourinary : no irregular bleeding, No Dysuria, No Urinary Frequency, No Hematuria, No Urinary Incontinence, No Urgency, No Flank Pain, No Urinary Flow Changes, No Hesitancy Musculoskeletal : No joint pain, No Myalgias, No Joint Swelling Skin : No Skin Lesions, No rash Neuro : No Weakness, No Numbness, No Paresthesias, No Loss of Consciousness, No Dizziness, No Headache Psych : No Anxiety/Panic, No Depression, No SI/HI/AH/VH, No Social Issues, Heme/Lymph: No Bruising, No Bleeding,No Lymphadenopathy Endocrine : No Polyuria, No Polydipsia, No Temperature Intolerance [facility] Past Medical History Medical History Bronchiolitis COPD (chronic obstructive pulmonary disease) Surgical History Hx of hernia repair (01/05/25) Social History Social History Household Members: Spouse Housing: House Are you a primary animal care giver to a significant other at home: No Do you presently have visiting nurse or other home services: No Unable to assess alcohol history related to: Unknown Alcohol intake: current Alcohol intake frequency: does not drink Comment: COUNTS CORRECT Patient Tobacco Use Status: Current everyday Tobacco user Tobacco use type: Cigarette Cigarette Packs Per Day: 1 Cigarettes Per Day: 20.0 Smoked in Last 30 Days: Yes Use of substances other than those prescribed or required for medical reasons: Yes Substance Use Type: Marijuana Substance Use Frequency: Occasionally Advance Directives: No Advance Directives Information Provided: Yes Do you have a plan to hurt others: No Plan service: No Physical Exam 2 Exam: Exam: Appearance: Alert. Oriented X3. No acute distress. Eyes: Pupils equal, round and reactive to light. ENT: Pharynx normal. Neck: Normal inspection. Neck supple. No lymph nodes noted. No crepitus CVS: Normal heart rate and rhythm. Pulses normal. Normal S1 and S2 Respiratory: No respiratory distress. Speaking in full sentences, oxygen saturation 95%, bilateral wheezing, no rales or crackles Abdomen: Soft and nontender. No rigidity. No distention. Skin: Skin warm and dry. Normal skin color. Normal skin turgor. Extremities: No lower extremity edema. No Lacerations. No Rash Neuro: Oriented X 3. No motor deficit. No sensory deficit. Moving all extremities. No slurred speech. CN 2 through 12 grossly intact Psych: calm, cooperative, normal affect Vital Signs: Vital Signs: Last Vital Signs Temp 97.6 F 04/12/25 04:00 Pulse 76 04/12/25 04:00 Resp 16 04/12/25 04:00 BP 126/72 04/12/25 04:00 Pulse Ox 95 04/12/25 05:57 O2 Del Method Room Air 04/12/25 04:00 BMI result Body Mass Index 18.7 Course Course Course Narrative: Patient comes in complaining of shortness of breath, newly diagnosed with COPD, patient states he ran out of his inhalers about a month ago. Patient receiving empirically IV fluids, azithromycin, ceftriaxone, albuterol, magnesium At this time, 02:41, patient's blood pressure stable, no fever, no significant abnormality in patient's white blood cell count, sepsis is not suspected. Medications Administered Discontinued Medications Generic Name Dose Route Start Last Admin Trade Name Freq PRN Reason Stop Dose Admin Albuterol Sulfate 8 puff 04/12/25 02:44 04/12/25 02:49 Albuterol Sulfate 90 Mcg 8 Gm Inhaler INHALE 04/12/25 02:45 8 puff ONCE ONE Administration Diphenhydramine HCl 50 mg 04/12/25 03:31 04/12/25 03:36 Diphenhydramine Hcl 50 Mg/Ml Vial IVPUSH 04/12/25 03:32 50 mg ONCE ONE Administration Famotidine 20 mg 04/12/25 03:31 04/12/25 03:36 Famotidine/Pf 20 Mg/2 Ml Vial IVPUSH 04/12/25 03:32 20 mg ONCE ONE Administration Magnesium Sulfate 2 gm in 50 mls @ 150 mls/hr 04/12/25 02:28 04/12/25 03:17 Magnesium Sulfate/H2o IV 04/12/25 02:47 Infused ONCE ONE Infusion Sodium Chloride 1,000 mls @ 999 mls/hr 04/12/25 02:28 04/12/25 05:15 Ns IVCONT 04/12/25 03:28 Infused .Q1H1M ONE Infusion Levofloxacin 500 mg in 100 mls @ 100 mls/hr 04/12/25 02:30 04/12/25 04:15 Levaquin IV 04/12/25 03:29 Infused ONCE ONE Infusion Iohexol 85 ml 04/11/25 23:40 04/11/25 23:40 Iohexol 350 Mg/Ml 100 Ml Infus..Btl IV 04/11/25 23:41 85 ml ONCE ONE Administration Methylprednisolone Sodium Succinate 125 mg 04/12/25 02:28 04/12/25 02:44 Methylprednisolone Sod Succ 125 Mg/2 Ml Vial IVPUSH 04/12/25 02:29 125 mg ONCE ONE Administration Medical Decision Making Medical Decision Making [facility] Narrative: My interpretation of labs: No significant abnormality in patient's hematology, chemistry within normal limits, normal LFTs, serology negative for influenza RSV and COVID Chest x-ray: Bilateral reticulonodular opacities in the upper lobes, secondary to atypical infection including tuberculosis versus malignancy 03:30, I was informed by the patient's nurse that the patient was complaining of itchiness in his legs and redness around his neck after getting IV contrast. Patient already had Solu-Medrol, patient now getting IV Benadryl and Pepcid. At this time, there is no oropharyngeal edema or signs of anaphylaxis. Patient breathing comfortably Chest CT: Preseptal emphysema, scarring and psychiatric station, bronchitis and broke colitis Patient was walked around the emergency room, oxygen saturation steady in the 95%, no wheezing, no shortness of breath. Patient does state that he feels much better. Differential Diagnosis Differential Diagnoses: The differential diagnosis associated with the presentation includes (Chronic lung disease, asthma, pneumonia) Admission/Observation Consideration of admission/observation: Escalation of care including admission/observation considered (Given patient's past medical history and presentation, observation was considered) Lab Data [facility] Lab Attestation statement: I reviewed the patient's lab results. 04/11/25 23:43 04/11/25 23:43 Labs: Lab Results 04/11/25 04/12/25 Range/Units 23:43 03:59 WBC 9.8 (4.8-10.8) X10*3/uL RBC 4.99 (4.60-5.80) X10*6/uL Hgb 14.9 (14.0-18.0) g/dl Hct 43.3 (42.0-52.0) % MCV 86.8 (80.0-98.0) fL MCH 29.9 (27.0-33.0) pg MCHC 34.4 (31.0-36.0) g/dl RDW 13.5 (11.0-16.0) % Plt Count 306 (160-400) X10*3/uL MPV 9.8 (9.4-12.4) fL Immature Gran % (Auto) 0.2 (0.0-0.4) % Neut % (Auto) 52.9 (45-73) % Lymph % (Auto) 16.2 L (20-40) % Sargent % (Auto) 10.8 (2-11) % Eos % (Auto) 19.3 H (0-4) % Baso % (Auto) 0.6 (0-2) % Lymph # (Auto) 1.6 (1.2-4.9) X10*3/uL Sargent # (Auto) 1.1 (0.1-1.2) X10*3/uL Eos # (Auto) 1.9 H (0.0-0.4) X10*3/uL Baso # (Auto) 0.1 (0.0-0.2) X10*3/uL Abs Immat Gran (auto) 0.02 (0.00-0.03) X10*3/uL Absolute Neuts (auto) 5.2 (2.0-8.3) x10*3/uL Absolute Nucleated RBC 0.000 (0.0-0.012) X10*3/uL Nucleated RBC % (auto) 0.0 (0.0-0.2) /100WBC Sodium 139 (135-145) mmol/L Potassium 3.9 (3.3-5.1) mmol/L Chloride 104 (96-108) mmol/L Carbon Dioxide 26 (22-29) mmol/L Anion Gap 13 (12-20) BUN 14 (9-16) mg/dL Creatinine 0.87 (0.5-1.4) mg/dL Estim Creat Clear Calc 72.4 Estimated GFR > 60 Random Glucose 102 (60-115) mg/dL Calcium 9.3 (8.4-10.2) mg/dL Total Bilirubin 0.5 (0.0-1.0) mg/dL AST 22 (5-37) U/L ALT 11 (0-40) U/L Alkaline Phosphatase 107 (39-117) U/L Total Protein 7.7 (6.5-8.0) g/dL Albumin 4.6 (3.5-5.0) g/dL Influenza Type A (PCR) NEGATIVE (Negative) Influenza Type B (PCR) NEGATIVE (Negative) RSV RNA Qual (PCR) NEGATIVE (Negative) SARS-CoV-2 RNA (RT-PCR) NEGATIVE (Negative) Independent Interpretation I performed an independent interpretation of an: CT Scan Radiology Impression Discussion of test interpretation with radiology: I have reviewed the radiologist's reading. Radiologist Impression: The heart size is normal. The visualized thyroid and mediastinum are unremarkable. There is moderate centrilobular and paraseptal emphysema. Multi areas of consolidation are noted particularly along the lung periphery and centrally within the right upper lobe. There also areas of parenchymal scarring and cicatrization particularly in the upper lobes. Scattered tree-in-bud opacities are also present compatible with bronchiolitis. Bronchial wall thickening is seen in the lower lobes with areas of mucous plugging. The visualized upper abdomen is unremarkable. The bones are intact. IMPRESSION: 1. Moderate centrilobular and paraseptal emphysema associated with scattered areas of mostly peripheral consolidation interspersed with areas of parenchymal scarring and cicatrization. 2. Bronchitis and bronchiolitis with mucous plugging in the lower lobes. Critical Care Time Critical Care Time Critical Care Time: Yes Total Critical Care Time: 45 Attestation: I have personally provided critical care time. Time includes review of lab data, radiology results, discussion with consultants, and monitoring for potential decompensation. Intervention performed as documented. Discharge Plan Discharge Clinical Impression: Chronic lung disease, Bronchitis Patient Disposition: Home, Self-Care Instructions: Acute Bronchitis (ED) Additional Instructions: Please follow-up with your primary care physician tomorrow. If you have any worsening or new symptoms, please return to the emergency room or call 911 Prescriptions: New prednisone 50 mg tablet 50 mg PO DAILY Qty: 4 0RF benzonatate 100 mg capsule 100 mg PO TID PRN (Reason: cough) Qty: 12 0RF levofloxacin 500 mg tablet 500 mg PO DAILY Qty: 7 0RF albuterol sulfate [Ventolin HFA] 90 mcg/actuation HFA aerosol inhaler 2 puff inhalation Q4-6H PRN (Reason: shortness of breath or wheezing) Qty: 8.5 2RF No Action acetaminophen [Tylenol] 325 mg Tablet 650 mg PO Q4H PRN (Reason: Pain) fluticasone furoate-vilanterol [Breo Ellipta] 200-25 mcg/dose Blister With Device 1 inh inhalation RDAILY Qty: 60 0RF albuterol sulfate [Ventolin HFA] 90 mcg/actuation Hfa Aerosol Inhaler 2 puff inhalation RQ4H PRN (Reason: Shortness Of Breath/Wheezing) Qty: 8.5 0RF levofloxacin 750 mg tablet 750 mg PO DAILY Qty: 6 0RF docusate sodium [Colace] 100 mg capsule 100 mg PO BID Qty: 30 0RF Print Language: Palauan
[2025-04-12] MEDS: Magnesium Sulfate/H2O 2 GM/50 ML PIGGYBACK IV (02:44)
[2025-04-12] MEDS: Albuterol Sulfate 90 MCG 8 GM INHALER 8 PUFF INHALE (02:49)
--- NOTE | 2025-04-12 03:30 | PC.NURSE ---
pt reporting itchy legs and neck/throat after IV contrast. neck noticeably red, legs are not. MD aware
--- NOTE | 2025-04-12 03:44 | PC.NURSE ---
hives noted to bilateral arms
--- NOTE | 2025-04-12 03:54 | PC.NURSE ---
pt medicated per OCT, airway remains patent
[2025-04-12 04:00] VITALS: BP 126/72; PULSE 76; RESP 16; TEMP 36.4; O2SAT 98
[2025-04-12 04:39] LABS: Resp Syncy Virus RNA Qual PCR NEGATIVE (Negative); SARS COV2 PCR INHOUSE NEGATIVE (Negative)
[2025-04-12 05:57] VITALS: O2SAT 95
--- NOTE | 2025-04-12 05:58 | MHC.EDTECH ---
@ 05:55 pt walked around the main ED for an SPO2 trial. at rest the pt stated 93% while walking he increased to a stat of 95%. No complainants of SOB or Dizziness or light headedness. Pt stated he felt wheezy no change to O2, MD and Rn aware.
[2025-04-12 06:09] VITALS: BP 114/62; PULSE 60; RESP 16; TEMP 36.9; O2SAT 95
[2025-04-12 06:30] VITALS: BP 114/62; PULSE 60; RESP 16; TEMP 36.9; O2SAT 95
== END 2025-04-12 06:30 | disposition home or self-care (01) ==
PROVIDERS: Emergency Provider Emergency Medicine
DX: J40 Bronchitis, not specified as acute or chronic (principal); J44.9 Chronic obstructive pulmonary disease, unspecified; R06.02 Shortness of breath
CPT/HCPCS: 36415; 71045; 71260; 80053; 85025; 87637; 96361; 96374; 96375; 99284; J1200; J1308; J1956; J2919; J3475; Q9967

== ENCOUNTER → 2025-04-12 02:28 | Outpatient (BNV) | payer OTHER, SELFPAY | PROVIDERS: Emergency Provider Emergency Medicine; Visit Provider Radiology Diagnostic Radiology | DX: J43.2 Centrilobular emphysema (principal) | CPT/HCPCS: 71260 ==

== ENCOUNTER 2025-05-07 07:12 | Outpatient (AMB) | payer OTHER, SELFPAY ==
--- NOTE | 2025-05-07 07:14 | MHC.OFFWIV ---
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 He was recently admitted (04/12/25) at [facility] [place] for COPD Exacerbation. He was sent home with medications. Today reports that he ran out of medicine and symptoms gradually got worse. He was told to f/u with Pulmonology but he did not I did not have Time . Pt is a chronic Cigarette smoker and not ready to quit. He does not have a PCP on File. [facility] Medical History (Updated 05/07/25 @ 07:27 by Екатерина Brunson NP) COPD with acute exacerbation Bronchiolitis COPD (chronic obstructive pulmonary disease) Surgical History Hx of hernia repair (01/05/25) Social History Household Members: Spouse Housing: House Are you a primary child caregiver private home to a significant other at home: No Do you presently have visiting nurse or other home services: No Unable to assess alcohol history related to: Unknown Alcohol intake: current Alcohol intake frequency: does not drink Comment: COUNTS CORRECT Patient Tobacco Use Status: Current everyday Tobacco user Tobacco use type: Cigarette Cigarette Packs Per Day: 1 Cigarettes Per Day: 20.0 Substance Use Type: Marijuana service: No Review of Systems Const All systems reviewed & are unremarkable except as noted in HPI and below Physical Exam Vital Signs: Last Vital Signs Temp 98.0 F 05/07/25 07:16 Pulse 77 05/07/25 07:16 Resp 17 05/07/25 07:16 BP 100/66 05/07/25 07:16 Pulse Ox 96 05/07/25 07:16 Oxygen Delivery Method Room Air 05/07/25 07:16 BMI result Body Mass Index 18.2 Const General: no acute distress Nutritional Appearance: underweight Orientation/consciousness: patient oriented x3 Resp Effort & Inspection: normal respiratory effort and audible wheezes Auscultation: no crackles, no rales, no rhonchi and wheezes scattered wheezes Cardio Heart sounds: S1 normal heart sound present and S2 normal heart sound present Neuro General: patient oriented x3 Office Procedures Nebulizer Treatment Nebulizer Treatment [id number] RX initial, or Nebulizer Subsequent Treatment Office Meds ipratropium 0.5 mg-albuterol 3 mg (2.5 mg base)/3 mL nebulization soln Performing Provider: Екатерина Brunson NP Performing Location: [facility] [place] [facility] Administered by: Екатерина Brunson NP on 05/07/25 07:29 Dose Route Admin Location Dispensed Lot Number Expiration Date [facility] Machine Loader 3 mL inhalation 3 mL Assessment & Plan Assessment & Plan (1) COPD with acute exacerbation: Code(s): J44.1 - Chronic obstructive pulmonary disease with (acute) exacerbation Plan: Nebulizer Tx in Office today. Pt reports feeling much better. Prescribed Breo Inhaler, Prednisone and Albuterol inhaler Ordered Doxy for 7 days as empirical Tx He will need Pulmonology Referral - will connect Pt with a PCP. Orders: Orders AMB Nebulizer Treatment Today J44.1 - Chronic obstructive pulmonary disease with (acute) exacerbation Medications: New prednisone 50 mg PO DAILY 5 tabs 0RF 5 days J44.1 - Chronic obstructive pulmonary disease with (acute) exacerbation fluticasone furoate-vilanterol 100-25 mcg/dose (Breo Ellipta) 1 inh inhalation DAILY 60 ea 2RF J44.1 - Chronic obstructive pulmonary disease with (acute) exacerbation doxycycline hyclate 100 mg PO BID 14 caps 0RF 7 days J44.1 - Chronic obstructive pulmonary disease with (acute) exacerbation Refilled albuterol sulfate 90 mcg/actuation (Ventolin HFA) 2 puffs inhalation Q4-6H PRN 8.5 grams 2RF shortness of breath or wheezing Coding Level of Care Code Est Pt Level 4 (40041) Diagnoses COPD with acute exacerbation J44.1 CPT Codes Nebulizer Treatment - Nebulizer Treatment, initial or subsequent: [id number] RX initial, or Nebulizer Subsequent Treatment ([id number]) Time Spent (min) 20
[2025-05-07 07:16] VITALS: BP 100/66; PULSE 77; RESP 17; TEMP 36.7; O2SAT 96; BMI 18.2
== END 2025-05-07 08:07 | disposition home or self-care (01) ==
PROVIDERS: Visit Provider Nurse Practitioner Family
DX: J44.1 Chronic obstructive pulmonary disease with (acute) exacerbation (principal)

== ENCOUNTER → 2025-05-07 07:12 | Outpatient (BNVA) | payer OTHER, SELFPAY | PROVIDERS: Visit Provider Nurse Practitioner Family | DX: J44.1 Chronic obstructive pulmonary disease with (acute) exacerbation (principal) | CPT/HCPCS: 94640; 99212 ==

== ENCOUNTER 2025-05-28 12:44 | Outpatient (REF) | payer OTHER, SELFPAY ==
[2025-05-28 15:11] LABS: Cholesterol 154 mg/dL (<200); HDL Cholesterol 55 mg/dL (>40); Triglycerides 57 mg/dL (<150)
[2025-05-29 05:16] LABS: Syphilis Screen Nonreactive (Nonreactive)
[2025-05-29 05:53] LABS: HBS Num1 0.18 mIU/mL (0-7.99); HBc Num1 0.08 S/CO (0.00-0.79); HBsAGNum1 0.29 S/CO (0.00-0.99); HIV Num 1 0.08 S/CO (0.00-0.99); Hepatitis A Antibody IgM 0.19 Index (0-0.79); Hepatitis B Surface Antigen Negative (Negative); ~HepC Num1 0.16 S/CO (0.00-0.79); ~Hepatitis A Antibody IgM Nonreactive (Nonreactive); ~Hepatitis B Surface Antibody NONREACTIVE (Nonreactive); ~Hepatitis C Antibody Nonreactive (Nonreactive)
== END 2025-05-28 12:45 | disposition home or self-care (01) ==
LOC: HO.LAB 12:44
PROVIDERS: PCP Student in an Organized Health Care Education/Training Program; Visit Provider Student in an Organized Health Care Education/Training Program
DX: Z76.89 Persons encountering health services in other specified circumstances (principal); R06.09 Other forms of dyspnea; J41.8 Mixed simple and mucopurulent chronic bronchitis; Z87.891 Personal history of nicotine dependence
CPT/HCPCS: 36415; 80061; 82306; 83036; 84443; 86704; 86706; 86709; 86780; 86803; 87340; 87389; 96127; 99212

== ENCOUNTER 2025-05-28 12:44 | Outpatient (AMB) | payer OTHER, SELFPAY ==
--- NOTE | 2025-05-28 12:48 | MHC.PC.OV ---
Vital Signs 05/28/25 12:55 Height 5 ft 10 in Weight 128 lb BMI 18.4 BP 104/56 L Blood Pressure Location Rt brachial Position Sitting Respiration 17 Pulse 86 Pulse Source Pulse Oximeter Temp 98.9 F Temp Source Temporal Artery Scan Pulse Oximetry (%) 97 Oxygen Delivery Method Room Air Intake Visit Reasons: New patient Surface Hydrologist Required: No Accompanied by: Self / Same As Patient Allergies Penicillins (PCN) Allergy (Verified 05/28/25 12:49) Unknown Tobacco use date assessed: 05/28/25 Dental Screening Dental Screen Date: 05/28/25 Did you have a dental visit in the last 12 months?: No Did you have a dental problem in the last 6 months where you did not have access to dental care?: No Was dental information given to patient?: Patient has dentist HPI HPI Comments History of Present Illness Details The patient is a 64-year-old male presenting with symptoms related to Chronic Obstructive Pulmonary Disease (COPD). He reports experiencing difficulty breathing which has been ongoing but noted some minor improvement since he ceased smoking three weeks prior to this visit. The patient describes the difficulty as huffing and puffing with physical activity, although he is able to walk short distances slowly without much distress. He denies any awakening from sleep gasping for air and has no trouble sleeping unless lying flat on his back, which sometimes induces coughing. There has been no leg swelling observed. The patient was diagnosed with COPD more than a decade ago following pulmonary function tests. He associates the condition with his long history of smoking, which he began in adolescence, smoking approximately a pack a day until he quit recently. Despite cessation, he occasionally smokes marijuana. Past exacerbations have been managed with prednisone, and he utilizes several inhalers. Medical History: - Chronic Obstructive Pulmonary Disease (COPD) - Allergic reaction to penicillin - Diagnosed COPD over 10 years ago confirmed by pulmonary testing Surgical History: - Inguinal hernia repair Medications: - Breo for COPD - Albuterol inhaler as a rescue medication Family History: - Father due to congestive heart failure - Grandmother had a brain tumor - No known family history of cancers Diagnostic Results: Tests and Diagnostics: - CT scan of the lungs revealed damage with mucus plugging in the lower lobes Social: - Quit smoking cigarettes three weeks ago, previously smoked about a pack a day for approximately 40 years - Occasionally smokes marijuana - Rare alcohol consumption, mostly on holidays - Not currently experiencing depression or anxiety - and living in his own home [facility] Medical History (Updated 05/28/25 @ 13:23 by Celso Pozo MD) Dyspnea Tobacco use disorder COPD with acute exacerbation Bronchiolitis COPD (chronic obstructive pulmonary disease) Surgical History Hx of hernia repair (01/05/25) Social History Household Members: Spouse Housing: House Are you a primary direct care worker to a significant other at home: No Do you presently have visiting nurse or other home services: No Alcohol intake: current Alcohol intake frequency: does not drink Comment: COUNTS CORRECT Patient Tobacco Use Status: Former Tobacco user Tobacco use type: Cigarette Cigarette Packs Per Day: 1 Cigarettes Per Day: 20.0 Years Smoked: 40 years-quit 3 weeks ago e-Cigarette/Vaping Use: Never Used Substance Use Type: Marijuana service: No Current occupational status: employed 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 1. Little interest or pleasure in doing things: not at all 2. Feeling down, depressed, or hopeless: not at all 3. Trouble falling or staying asleep, or sleeping too much: not at all 4. Feeling tired or having little energy: not at all 5. Poor appetite or overeating: not at all 6. Feeling bad about yourself - or that you are a failure or have let yourself or your family down: not at all 7. Trouble concentrating on things, such as reading the newspaper or watching television: not at all 8. Moving or speaking so slowly that other people could have noticed. Or the opposite - being so fidgety or restless that you have been moving around a lot more than usual: not at all 9. Thoughts that you would be better off or of hurting yourself in some way: not at all Total score: 0 Depression Screening Interpretation: Negative Depression Screening Done: Yes 33601 - PHQ-9 Billing: Yes Source: Developed by Drs. Greg Henderson, Skylar Castañeda, Basilio Patten and colleagues, with an educational trice from [employer]. Thrive Questionnaire Date Thrive assessed: 01/05/25 I am a: Patient What is your living situation today?: I have a steady place to live Within the past 12 months, did the food you bought not last and you didn't have the money to get more?: Never true Within the past 12 months, did you worry whether your food would run out before you got money to buy more?: Never true Do you have trouble paying for medicines?: No Do you have trouble getting transportation to medical appointments?: No Do you have trouble paying your heating and electricity bill?: No Do you have trouble taking care of your child, family member or friend?: No Do you have trouble with day-to-day activities such as bathing, preparing meals, shopping, managing finances, etc.?: No Are you currently unemployed and looking for a job?: No Are you interested in more education?: No THRIVE Score: 0 AUDIT C Alcohol Use Questionnaire (AUDIT-C) 1. How often do you have a drink containing alcohol?: Monthly or less 2. How many drinks containing alcohol do you have on a typical day when you are drinking?: 1 or 2 3. How often do you have six or more drinks on one occasion?: Never Total Score: 1 Score Reviewed/Action Taken: Yes FERNANDEZ-7 AMB Questionnaire FERNANDEZ-7 Date FERNANDEZ - 7 assessed: 05/28/25 Feeling nervous, anxious, or on edge: 0 = Not at all Not being able to stop or control worryin = Not at all Worrying too much about different things: 0 = Not at all Trouble relaxin = Not at all Being so restless that it is hard to sit still: 0 = Not at all Becoming easily annoyed or irritable: 0 = Not at all Feeling afraid as if something awful might happen: 0 = Not at all Total FERNANDEZ-7 score (0-4 normal; 5-9 mild; 10-14 moderate; 15-21 severe): 0 Source: Developed by Drs. Greg Henderson, Skylar Castañeda, Basilio Patten and colleagues, with an educational trice from [employer]. FERNANDEZ-7 Assessment Billing FERNANDEZ-7 Assessment Tool: FERNANDEZ-7 Assessment 17597 Review of Systems Const Details: - Respiratory: Reports difficulty breathing during exertion, occasional cough when lying flat, denies waking up gasping for air - Cardiovascular: Denies any leg swelling - Sleep: Reports positional coughing that disrupts sleep; denies awakening from sleep gasping for air All systems reviewed & are unremarkable except as reviewed in HPI and above Physical exam (Primary Care) Vital Signs: Last Vital Signs Temp 98.9 F 05/28/25 12:55 Pulse 86 05/28/25 12:55 Resp 17 05/28/25 12:55 BP 104/56 L 05/28/25 12:55 Pulse Ox 97 05/28/25 12:55 Oxygen Delivery Method Room Air 05/28/25 12:55 BMI result Body Mass Index 18.4 Tobacco/Smoking Status: Tobacco use Status Tobacco use date assessed 05/28/25 05/28/25 12:58 Patient Tobacco Use Status Former Tobacco user 05/28/25 12:58 Tobacco use type Cigarette 05/28/25 12:58 e-Cigarette/Vaping Use Never Used 05/28/25 12:58 Are you ready to quit: Yes Tobacco cessation counseling provided: Yes Relapse Prevention: discussed the importance of a supportive environment and discussed extending NRT Number of minutes spent counselin CPT code: 90382 - 4-10 Minutes Depression Screening Interpretation: Negative Thrive Assessment: Date of Thrive Assessment Date Thrive assessed 01/05/25 05/28/25 12:58 Const Other: General: +Alert and oriented, Well nourished, No acute distress. Eye: Pupils are equal, round and reactive to light, Intact accommodation, Extraocular movements are intact, Normal conjunctiva, Vision unchanged. HENT: Normocephalic, Atraumatic, Tympanic membranes are clear, Normal hearing, Oral mucosa is moist, No pharyngeal erythema, Ear canals patent. Respiratory: Lungs CTA bilaterally, Mild wheeze noted, Respirations are non-labored. Cardiovascular: Regular rate, Regular rhythm, S1 auscultated, S2 auscultated, No murmur, Good pulses equal in all extremities, Normal peripheral perfusion, No edema. Gastrointestinal: Soft, Non-tender, Non-distended, Normal bowel sounds, No organomegaly. Musculoskeletal: Normal range of motion, Normal strength, No tenderness, No swelling, No deformity, Normal gait. Integumentary: Warm, Dry, [place], Intact. Neurologic: Alert, Oriented, Normal sensory, Normal motor function, No focal defects, Cranial Nerves II-XII are grossly intact, Normal deep tendon reflexes. Psychiatric: Cooperative, Appropriate mood & affect, Normal judgment. Coding Level of Care Code Est Pt Level 4 (06923) Complex EM visit Add On G2211 Diagnoses Dyspnea on exertion R06.09 Dyspnea type: dyspnea on exertion Mixed simple and mucopurulent chronic bronchitis J41.8 COPD type: chronic bronchitis Chronic bronchitis type: mixed simple and mucopurulent Tobacco use disorder F17.200 Additional Codes PHQ-9 - 27385 - PHQ-9 Billing: Yes ([id number]) FERNANDEZ-7 Assessment Billing - FERNANDEZ-7 Assessment Tool: FERNANDEZ-7 Assessment 48696 ([id number]) Vital Signs *Quality* - CPT code: 45786 - 4-10 Minutes ([id number]) Assessment & Plan Assessment & Plan (1) Dyspnea: Comment: Reports worsening dyspnea with a past few weeks and shortness of breath on ambulation and work. He also endorses occasionally having difficulty lying flat. While this is likely secondary to his underlying COPD, there also remains a possibility of underlying congestive heart failure therefore we will also obtain an echo in addition to his PFTs. Code(s): R06.00 - Dyspnea, unspecified Category: Medical Qualifiers: Dyspnea type: dyspnea on exertion Qualified Code(s): R06.09 - Other forms of dyspnea (2) COPD (chronic obstructive pulmonary disease): Comment: - Reinforcement of smoking cessation noted, full cessation encouraged not only of cigarettes but marijuana as well to prevent further lung damage. - Continue Breo daily. - Albuterol inhaler as needed for acute exacerbations. - Prescribe nebulization liquid for use if the inhaler is insufficient during exacerbations, details on nebulizer acquisition provided. - Encourage attendance at pulmonology for further lung function evaluation and determination of oxygen requirements during activity. Code(s): J44.9 - Chronic obstructive pulmonary disease, unspecified Category: Medical Qualifiers: COPD type: chronic bronchitis Chronic bronchitis type: mixed simple and mucopurulent Qualified Code(s): J41.8 - Mixed simple and mucopurulent chronic bronchitis (3) Tobacco use disorder: Comment: Extensive smoking history of over 40 pack years. While he is due for tobacco screening he underwent a CT of his chest in March, repeat next year. Code(s): F17.200 - Nicotine dependence, unspecified, uncomplicated Category: Medical Plan: Health maintenance: - Colonoscopy scheduled as initial screening given age and prior failure due to intolerance. - Annual CT scan of the lung discussions documented with future appointment pending due to recent imaging. - Recommendations to align dietary intake and activity level to decrease cardiovascular risk factors noted in consultation. - Reinforce cessation of tobacco and marijuana smoking as critical to pulmonary maintenance. Patient was informed and verbally consented to the use of an ambient scribe for clinic note documentation during this visit. Plan I initiated an extensive interaction detailing the nature and management of COPD, emphasizing the chronic and irreversible nature of the disease. The conversation centered around the patient?s progress in smoking cessation, important in symptom management and preventing further aggravation. I addressed nebulization usage as an adjunct therapy for exacerbations with corticosteroids reserved for crisis intervention. Screening needs aligned with typical recommendations for his age. For prevention, I stressed adherence to non-smoking and the significance of following through with scheduled pulmonary tests and screenings, inclusive of a colonoscopy. The patient left informed regarding any risks associated, poised with a clear management strategy. Orders: Orders Lipid Panel Today Z.89 - Persons encountering health services in other specified circumstances TSH reflex Free T4 Today Z76. - Persons encountering health services in other specified circumstances PFT pulmonary function test Today J41.8 - Mixed simple and mucopurulent chronic bronchitis CA echo transthoracic complete Today R06.00 - Dyspnea, unspecified Hemoglobin A1c Today Z76.89 - Persons encountering health services in other specified circumstances Hepatitis A,B,C Profile Today Z76.89 - Persons encountering health services in other specified circumstances HIV Ab/Ag Today Z76.89 - Persons encountering health services in other specified circumstances Vitamin D 25-OH Total Today Z76.89 - Persons encountering health services in other specified circumstances Syphilis Screen Today Z76.89 - Persons encountering health services in other specified circumstances Referrals Pulmonology Referral J41.8 - Mixed simple and mucopurulent chronic bronchitis Open Access Screening Colonoscopy Referral Z12.11 - Encounter for screening for malignant neoplasm of colon Medications: New albuterol sulfate 5 mg inhalation Q6H PRN 30 ea 8RF shortness of breath or wheezing nebulizer and compressor (All-In-One Nebulizer System) As directed 1 ea 0RF ipratropium-albuterol 0.5 mg-3 mg(2.5 mg base)/3 mL 3 mL inhalation Q6-8H PRN 180 mL 7RF wheezing 30 days Refilled albuterol sulfate 90 mcg/actuation (Ventolin HFA) 2 puffs inhalation Q4-6H PRN 8.5 grams 2RF shortness of breath or wheezing fluticasone furoate-vilanterol 100-25 mcg/dose (Breo Ellipta) 1 inh inhalation DAILY 60 ea 2RF J44.1 - Chronic obstructive pulmonary disease with (acute) exacerbation Patient Instructions: - Continue using Breo as prescribed, and use Albuterol inhaler immediately as needed. - Employ nebulizer with provided solution when symptoms are inadequately managed by inhaler. - Finish course of Nicotine patches as per current stage, avoiding tobacco and marijuana. - Attend scheduled appointments with pulmonary medicine for detailed lung evaluation. - Proceed with routine lab tests and schedule a colonoscopy. - Contact the office if breathing difficulties persist or worsen, or with any new symptoms. - Ensure understanding that reducing exposure to smoke significantly benefits condition management.
[2025-05-28 12:55] VITALS: BP 104/56; PULSE 86; RESP 17; TEMP 37.2; O2SAT 97; BMI 18.4
== END 2025-05-28 13:19 | disposition home or self-care (01) ==
PROVIDERS: PCP Student in an Organized Health Care Education/Training Program; Visit Provider Student in an Organized Health Care Education/Training Program
DX: R06.09 Other forms of dyspnea (principal); J41.8 Mixed simple and mucopurulent chronic bronchitis; F17.200 Nicotine dependence, unspecified, uncomplicated

== ENCOUNTER 2025-06-25 13:02 | Outpatient (AMB) | payer OTHER, SELFPAY ==
[2025-06-25 13:04] VITALS: BP 120/78; PULSE 75; TEMP 37; O2SAT 96; BMI 19.2
--- NOTE | 2025-06-25 13:04 | A.OFFPC_ITS ---
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 He reports that his breathing is slightly better with the use of his prescribed medications, which include a nebulizer with albuterol and ipratropium solutions, and a Dulera inhaler twice daily. He still experiences some coughing, but not much, and occasional wheezing, though it has improved. The patient denies that his breathing gets worse when he lies flat. The patient quit smoking cigarettes seven weeks ago and has noticed that he is not as short of breath while working and recovers more quickly. His is a smoker, resulting in secondhand smoke exposure at home. Review of recent blood work from May 19 identified a vitamin D deficiency, for which he was started on a supplement. His cholesterol panel was satisfactory, and while he is not diabetic, he is close to being prediabetic. He has a pulmonology appointment scheduled for July 12. Medical History: - Chronic Obstructive Pulmonary Disease - Vitamin D deficiency - Prediabetes - History of tobacco use Medications: - Albuterol inhaler for COPD - Albuterol solution for nebulizer for C OPD - Ipratropium solution for nebulizer for COPD - Dulera (mometasone) twice a day for [place] PD - Tylenol as needed - Vitamin D supplement for deficiency Diagnostic Results: - Labs (May 19): Revealed a vitami n D deficiency. - Labs (May 19): Cholesterol panel was great with bad cholesterol well under control. - Labs (May 19): Results indicate the patient is close to being prediabetic. Social History: - Tobacco Use: Patient reports he has no t smoked a cigarette in seven weeks. - Environmental Exposures: Exposed to se condhand smoke at home as his smokes. - Functional Status: Reports improved sh ortness of breath and quicker recovery during work since quitting smoking. [facility] Medical History (Updated 06/25/25 @ 13:24 by Celso Pozo MD) Prediabetes Vitamin D deficiency Dyspnea Tobacco use disorder COPD with acute exacerbation Bronchiolitis COPD (chronic obstructive pulmonary disease) Surgical History Hx of hernia repair (01/05/25) Family History (Updated 06/25/25 @ 13:11 by Jeimy Andre MA) Mother No problems noted. Father No problems noted. 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 1. Little interest or pleasure in doing things: not at all 2. Feeling down, depressed, or hopeless: not at all 3. Trouble falling or staying asleep, or sleeping too much: not at all 4. Feeling tired or having little energy: not at all 5. Poor appetite or overeating: not at all 6. Feeling bad about yourself - or that you are a failure or have let yourself or your family down: not at all 7. Trouble concentrating on things, such as reading the newspaper or watching television: not at all 8. Moving or speaking so slowly that other people could have noticed. Or the opposite - being so fidgety or restless that you have been moving around a lot more than usual: not at all 9. Thoughts that you would be better off or of hurting yourself in some way: not at all Total score: 0 Source: Developed by Drs. Greg Henderson, Skylar Castañeda, Basilio Patten and colleagues, with an educational triec from [employer]. Thrive Questionnaire Date Thrive assessed: 06/25/25 I am a: Patient Within the past 12 months, did the food you bought not last and you didn't have the money to get more?: Never true Within the past 12 months, did you worry whether your food would run out before you got money to buy more?: Never true Do you have trouble paying for medicines?: No Do you have trouble getting transportation to medical appointments?: No Do you have trouble paying your heating and electricity bill?: No Do you have trouble taking care of your child, family member or friend?: No Do you have trouble with day-to-day activities such as bathing, preparing meals, shopping, managing finances, etc.?: No Are you currently unemployed and looking for a job?: No Are you interested in more education?: No THRIVE Score: 0 AUDIT C Alcohol Use Questionnaire (AUDIT-C) 1. How often do you have a drink containing alcohol?: Monthly or less 2. How many drinks containing alcohol do you have on a typical day when you are drinking?: 1 or 2 3. How often do you have six or more drinks on one occasion?: Less than monthly Total Score: 2 FERNANDEZ-7 AMB Questionnaire FERNANDEZ-7 Date FERNANDEZ - 7 assessed: 06/25/25 Feeling nervous, anxious, or on edge: 0 = Not at all Not being able to stop or control worryin = Not at all Worrying too much about different things: 0 = Not at all Trouble relaxin = Not at all Being so restless that it is hard to sit still: 0 = Not at all Becoming easily annoyed or irritable: 0 = Not at all Feeling afraid as if something awful might happen: 0 = Not at all Total FERNANDEZ-7 score (0-4 normal; 5-9 mild; 10-14 moderate; 15-21 severe): 0 Source: Developed by Skylar Gilbert. Garry, Basilio Patten and colleagues, with an educational trice from [employer]. Review of Systems Narrative - Constitutional: Reports feeling better. - Respiratory: Reports his breathing is a little better but wishes it would improve further. - Reports a little cough but denies coughing up a lot. - Denies bringing up a lot of sputum. - Reports a little wheezing here and there, but it has improved. - Denies orthopnea. - Gastrointestinal: Reports normal eating and bowel movements. - Genitourinary: Reports normal urination. All systems reviewed & are unremarkable except as reviewed in HPI and above Physical exam (Primary Care) Vital Signs: Last Vital Signs Temp 98.6 F 06/25/25 13:04 Pulse 75 06/25/25 13:04 BP 120/78 06/25/25 13:04 Pulse Ox 96 06/25/25 13:04 Oxygen Delivery Method Room Air 06/25/25 13:04 BMI result Body Mass Index 19.2 Tobacco/Smoking Status: Tobacco use Status Tobacco use date assessed 06/25/25 06/25/25 13:05 Patient Tobacco Use Status Former Tobacco user 06/25/25 13:05 Tobacco use type Cigarette 06/25/25 13:05 e-Cigarette/Vaping Use Former Use 06/25/25 13:12 PHQ-9: PHQ-9 Score PHQ-9: Total score 0 06/25/25 13:12 Thrive Assessment: Date of Thrive Assessment Date Thrive assessed 06/25/25 06/25/25 13:05 Narrative General: +Alert and oriented, Well nourished, No acute distress. Eye: Pupils are equal, round and reactive to light, Intact accommodation, Extraocular movements are intact, Normal conjunctiva, Vision unchanged. HENT: Normocephalic, Atraumatic, Tympanic membranes are clear, Normal hearing, O ral mucosa is moist, No pharyngeal erythema, Ear canals patent. Respiratory: Lungs CTA bilaterally, Wheeze present on the right side, Respirations are non-labored. Cardiovascular: Regular rate, Regular rhythm, S1 auscultated, S2 auscultated, No murmur, Good pulses equal in all extremities, Normal peripheral perfusion, No edema. Gastrointestinal: Soft, Non-tender, Non-distended, Normal bowel sounds, No organomegaly. Musculoskeletal: Normal range of motion, Normal strength, No tenderness, No swelling, No deformity, Normal gait. Integumentary: Warm, Dry, [place], Intact. Neurologic: Alert, Oriented, Normal sensory, Normal motor function, No focal defects, Cranial Nerves II-XII are grossly intact, Normal deep tendon reflexes. Psychiatric: Cooperative, Appropriate mood & affect, Normal judgment. Coding Level of Care Code Est Pt Level 4 (84776) Complex EM visit Add On G2211 Diagnoses Mixed simple and mucopurulent chronic bronchitis J41.8 COPD type: chronic bronchitis Chronic bronchitis type: mixed simple and mucopurulent Dyspnea on exertion R06.09 Dyspnea type: dyspnea on exertion Vitamin D deficiency E55.9 Prediabetes R73.03 Assessment & Plan Assessment & Plan (1) COPD (chronic obstructive pulmonary disease): Comment: - The patient's breathing symptoms are improving with his current regimen of a nebulizer, albuterol, and Dulera, which is encouraging. - His quitting smoking seven weeks ago is a significant positive step. - However, the physical exam revealed wheezing on the right side, indicating ongoing inflammation. - The plan is to continue the current inhaler therapy and add a five-day course of oral steroids to address the wheezing. - Further evaluation with an ordered heart ultrasound and PFTs by the environmental attorney is planned. - The patient will follow up with pulmonology on July 12. Code(s): J44.9 - Chronic obstructive pulmonary disease, unspecified Category: Medical Qualifiers: COPD type: chronic bronchitis Chronic bronchitis type: mixed simple and mucopurulent Qualified Code(s): J41.8 - Mixed simple and mucopurulent chronic bronchitis (2) Dyspnea: Comment: - Has had improvement but still endorses some shortness of breath on laying down - An ECHO has been ordered however HF appears less likely given absence of LE Edema but Pulmonary Hypertension may be playing a role Code(s): R06.00 - Dyspnea, unspecified Category: Medical Qualifiers: Dyspnea type: dyspnea on exertion Qualified Code(s): R06.09 - Other forms of dyspnea (3) Vitamin D deficiency: Comment: - The patient has a known deficiency and is being treated with supplements (Weekly Vitamin D) Code(s): E55.9 - Vitamin D deficiency, unspecified Category: Medical (4) Prediabetes: Comment: - Labs from a month prior demonstrated an A1c of 5.8 - Will continue to monitor Code(s): R73.03 - Prediabetes Category: Medical Plan: Health Maintenance: - Vaccinations: Recommended patient receive a flu shot and a COVID-19 shot. - Smoking Cessation: Patient has quit smoking for seven weeks. - Risk Reduction: Advised patient to avoid exposure to secondhand smoke from his to prevent worsening his breathing. - Specialist Follow-up: Patient has a scheduled appointment with pulmonology on July 12. - Diagnostic Testing: Pulmonary function tests (PFTs) and an ultrasound of the heart have been ordered. Patient was informed and verbally consented to the use of an ambient scribe for clinic note documentation during this visit. Plan I informed the patient that his breathing has improved with the use of his inhalers, which is a positive sign. I emphasized that quitting smoking was a crucial step and that while we cannot reverse existing lung damage, we can work to prevent further progression. During the examination, I noted wheezing on his right side and recommended a five-day course of oral steroids to help with his breathing. We discussed the importance of getting his flu and COVID-19 shots to prevent infections that could significantly worsen his COPD. I also stressed the need to avoid secondhand smoke from his , as continued exposure will negatively affect his breathing. I confirmed that orders for an ultrasound of his heart and pulmonary function tests are in place and that he has an upcoming appointment with a environmental attorney. I advised him that I will contact him if any of the test results are abnormal, and arranged for a follow-up visit in six months. Medications: New prednisone 50 mg PO DAILY 5 tabs 0RF Patient Instructions: - Continue to use your prescribed medications, including your nebulizer and inhalers (Albuterol, Ipratropium, and Dulera), as directed. - Take the new five-day course of steroids that I have sent to your pharmacy. - Continue to not smoke. - It is also very important to avoid being around your when she is smoking, as the secondhand smoke can make your breathing worse. - Get your flu shot and COVID-19 shot as soon as you can. - Go to your scheduled appointment with the lung specialist (pulmonology) on July 12. - We have ordered an ultrasound of your heart; someone will contact you to schedule it. - Your next follow-up appointment in this office will be in six months. - We will call you if any of your test results come back abnormal.
== END 2025-06-25 13:24 | disposition home or self-care (01) ==
LOC: HO.HMCHD 13:03
PROVIDERS: PCP Student in an Organized Health Care Education/Training Program; Visit Provider Student in an Organized Health Care Education/Training Program
DX: J41.8 Mixed simple and mucopurulent chronic bronchitis (principal); R06.09 Other forms of dyspnea; E55.9 Vitamin D deficiency, unspecified; R73.03 Prediabetes

== ENCOUNTER → 2025-06-25 13:02 | Outpatient (BNVA) | payer OTHER, SELFPAY | PROVIDERS: PCP Student in an Organized Health Care Education/Training Program; Visit Provider Student in an Organized Health Care Education/Training Program | DX: J44.89 Other specified chronic obstructive pulmonary disease (principal); J41.8 Mixed simple and mucopurulent chronic bronchitis; R06.09 Other forms of dyspnea; E55.9 Vitamin D deficiency, unspecified; R73.03 Prediabetes; Z87.891 Personal history of nicotine dependence; Z13.30 Encounter for screening examination for mental health and behavioral disorders, unspecified; Z13.39 Encounter for screening examination for other mental health and behavioral disorders | CPT/HCPCS: 99212 ==

== ENCOUNTER → 2025-07-06 12:28 | Outpatient (REF) | payer OTHER, SELFPAY ==
--- NOTE | 2025-07-06 12:34 | CA_ITS ---
Transthoracic Echocardiogram Patient (Last, First, Middle): Ramírez Curran C Gender: M Date of : 1960 Age: 64 Procedure Date: 07/06/2025 Procedure Type: Transthoracic Echocardiogram Location: OP Height: 177.8 cm Weight: 59.88 kg BSA: 1.75 m2 Heart Rate: 78 bpm BP: 120 / 78 mmHg Manager Recruiting: SB Referring MD: Celso Pozo MD Law Office Assistant: Michael Lord MD Symptoms: R06.00 - Dyspnea, unspecified Study Quality: Adequate ECG Rhythm: Sinus Conclusions: - Essentially normal study Findings Left Ventricle Normal left ventricular size, thickness, and systolic function. The visually estimated ejection fraction is between 60-65%. Diastolic function is normal for age. Right Ventricle Normal right ventricular cavity size and systolic function. Atria Both atria are normal in size. Interatrial shunt cannot be excluded. Aortic Valve Normal aortic valve structure and function. There is no aortic valve stenosis. There is no aortic valve regurgitation. Mitral Valve Normal mitral valve structure and function. There is trace mitral valve regurgitation. There is no mitral valve stenosis. Pulmonic Valve The pulmonic valve is likely normal. Tricuspid Valve Normal tricuspid valve structure. There is trace tricuspid valve regurgitation. The right ventricular systolic pressure is normal. The right ventricular systolic pressure is 29 mmHg. Normal right atrial pressure. There is no evidence of pulmonary hypertension. Great Vessels All visible segments of the aorta are normal in size. The pulmonary artery was not well visualized. Venous The inferior vena cava is normal in size and collapses greater than 50% with inspiration. Pericardium/Pleural There is no evidence of pericardial effusion. Measurements 2D Linear Measurements IVSd: 0.65 0.6-0.9/0.6-1.0 cm LVIDd: 4.26 3.9-5.3/4.2-5.9 cm LVIDd Index: 2.43 2.4-3.2/2.2-3.1 cm/m2 LVIDs: 2.57 2.0-3.6 cm LVPWd: 0.66 0.7-1.1 cm LA Diam: 2.30 2.7-3.8/3.0-4.0 cm LAIDs Index: 1.31 1.5-2.3 cm/m2 LV Mass: 99.22 67-162/88-224 g LV Mass Index: 56.70 43-95/49-115 g/m2 LVOT Diam: 2.00 3.0+(-)1.3 cm 2D Systolic Function EF 4C: 64.10 >55% EF 2C: 57.50 >55% EF BiP: 59.90 >55% Mitral Valve MV Pk E: 0.80 MV PK A: 0.58 MV Decel Time: 233.00 E/A: 1.40 E'Lateral: 9.25 E'Medial: 5.44 E/E' Med: 14.70 E/E' Lat: 8.60 PHT: 68.00 MVA PHT: 3.24 Decel [place]: 3.42 Aortic Valve AoV Pk Zackary: 1.43 AoV Pk Grad: 8.00 LORRAINE: 2.62 LVOT LVOT Pk Zackary: 1.07 LVOT Mn Zackary: 0.87 LVOT VTI: 0.22 LVOT Pk Grad: 5.00 LVOT Mn Grad: 3.00 LVOT Diam: 2.00 LVOT Area: 3.14 Diastolic Function MV Pk E: 0.80 MV Pk A: 0.58 E/A: 1.40 E'Medial: 5.44 E/E' Med: 14.70 E' Laterial: 9.25 E/E' Lat: 8.60 Right Ventricle TAPSE (mm): 17.20 TVS' Zackary: 10.70 Tricuspid Valve TR Pk Zackary: 2.54 TR Pk Grad: 26.00 RA Press: 3.00 RVSP: 29.00 Great Vessels Aorta Sinus of Valsalva: 3.50 2.0-3.5 cm Ao Asc: 2.70 2.1-3.4 cm Pulmonary Veins Pulm Vein S/D 0.90 Pulmonary Valve PV Pk Zackary: 1.01 Peak PV Grad: 4.00 Updated in Other Vendor System with Status of Final Michael Lord MD electronically signed on 07/06/2025 4:18:47 PM with status of Final
== END ==
LOC: HO.CARD 12:28
PROVIDERS: PCP Student in an Organized Health Care Education/Training Program; Visit Provider Student in an Organized Health Care Education/Training Program
DX: R06.00 Dyspnea, unspecified (principal)
CPT/HCPCS: 93306

== ENCOUNTER → 2025-07-06 12:34 | Outpatient (BNV) | payer OTHER, SELFPAY | PROVIDERS: PCP Student in an Organized Health Care Education/Training Program; Visit Provider Internal Medicine Cardiovascular Disease | DX: R06.00 Dyspnea, unspecified (principal) | CPT/HCPCS: 93306 ==

== ENCOUNTER 2025-08-06 03:30 | Emergency (ER) | payer OTHER, SELFPAY ==
--- NOTE | ~2025-08-06 | XR_ITS ---
CLINICAL HISTORY: chest pain 1 view chest x-ray. Comparison: CT/SR - CT CHEST W IV CON - 04/12/25 03:07 EDT CR - XR CHEST 1V - 04/11/25 23:49 EDT Findings: There is emphysema with stable hyperinflation. Extensive bilateral reticulonodular opacities and patchy airspace opacities greatest in the upper and mid lungs are not appreciably changed and most consistent with chronic atypical infection such as granulomatous or fungal. There is no effusion or pneumothorax. Cardiomediastinal silhouette is within normal limits. IMPRESSION: No acute cardiopulmonary abnormality. This document has been electronically signed by: Adarsh Marcos MD on 08/06/2025 04:53:31
[2025-08-06 03:32] VITALS: BP 148/76; PULSE 98; RESP 22; TEMP 36.4; O2SAT 95; BMI 19.4
[2025-08-06 03:56] VITALS: BP 148/76; PULSE 98; RESP 22; TEMP 36.4; O2SAT 95
[2025-08-06 04:31] LABS: Resp Syncy Virus RNA Qual PCR NEGATIVE (Negative); SARS COV2 PCR INHOUSE NEGATIVE (Negative)
--- NOTE | 2025-08-06 06:17 | ED.GENADULT ---
HPI - General Adult General Chief complaint: Dyspnea Stated complaint: Shortness Of Breath Time Seen by Provider: 08/06/25 06:17 Source: patient Mode of arrival: ambulatory Limitations: no limitations History of Present Illness ED Provider: Dr. Phipps [facility] narrative: 65-year-old male history of COPD presented hospital today for evaluation of shortness of breath. This has been going on since Wednesday. Patient stated that he has been coughing. Denies any sore throat nasal congestion. The patient has been using albuterol inhaler and nebulizer at home without any alleviation. Therefore he presents to the ER for further evaluation. Related Data Home Medications ?Medication ?Instructions ?Recorded ?Confirmed acetaminophen 325 mg tablet 650 mg PO Q4H PRN Pain 01/04/25 06/25/25 (Tylenol) Previous Rx's ?Medication ?Instructions ?Recorded albuterol sulfate 2.5 mg/0.5 mL 5 mg inhalation Q6H PRN shortness 05/28/25 solution for nebulization of breath or wheezing #30 ea albuterol sulfate 90 mcg/actuation 2 puff inhalation Q4-6H PRN 05/28/25 aerosol inhaler (Ventolin HFA) shortness of breath or wheezing #8.5 grams cholecalciferol (vitamin D3) 1,250 1,250 mcg PO QWEEK 12 weeks #12 05/28/25 mcg (50,000 unit) capsule caps ipratropium 0.5 mg-albuterol 3 mg 3 ml inhalation Q6-8H PRN wheezing 05/28/25 (2.5 mg base)/3 mL nebulization 30 days #180 mL soln mometasone-formoterol HFA 100 2 puff inhalation BID #13 grams 05/29/25 mcg-5 mcg/actuation aerosol inhaler (Dulera) nebulizer and compressor #1 ea 06/15/25 (All-In-One Nebulizer System) prednisone 50 mg tablet 50 mg PO DAILY #5 tabs 06/25/25 azithromycin 250 mg tablet See Rx Instructions PO .COMPLEX #6 08/06/25 (Zithromax) tabs prednisone 50 mg tablet 50 mg PO DAILY 5 days #5 tabs 08/06/25 Allergies Allergy/AdvReac Type Severity Reaction Status Date / Time Penicillins (PCN) Allergy Unknown Verified 08/06/25 03:37 Review of Systems Review of Systems: Pertinent review of systems as mentioned in HPI. All other system otherwise negative. [facility] Past Medical History [facility] Narrative: Medical history as mentioned in HPI Medical History (Updated 08/06/25 @ 09:04 by Ashley Phipps DO) Prediabetes Vitamin D deficiency Dyspnea Tobacco use disorder COPD with acute exacerbation Bronchiolitis COPD (chronic obstructive pulmonary disease) Surgical History Hx of hernia repair (01/05/25) Family History Family History (Updated 06/25/25 @ 13:11 by Jeimy Andre MA) Mother No problems noted. Father No problems noted. Social History Social History Household Members: Spouse Housing: House Are you a primary care clinician to a significant other at home: No Do you presently have visiting nurse or other home services: No Alcohol intake: current Alcohol intake frequency: does not drink Comment: COUNTS CORRECT Patient Tobacco Use Status: Former Tobacco user Tobacco use type: Cigarette Cigarette Packs Per Day: 1 Cigarettes Per Day: 20.0 Years Smoked: 40 years-quit 3 weeks ago Smoked in Last 30 Days: Yes e-Cigarette/Vaping Use: Former Use Use of substances other than those prescribed or required for medical reasons: No Substance Use Type: Marijuana Advance Directives: No Advance Directives Information Provided: No service: No Current occupational status: employed 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 Cognitive needs: No Hearing needs: No Vision needs: Yes (rx glasses) Physical Exam ED Exam Exam: General: Pleasant, no distress, interacting appropriately Head: Normacephalic, atraumatic ENT: oral mucosa moist, neck supple, no tracheal deviation Cardiovascular: regular rate, regular rhythm, no murmurs, rubbing, gallops Respiratory: Bilateral wheezing on exam Extremities: No limb pain or swelling Neurological: Awake and alert, no facial droop noted Skin: Warm and dry Psychiatric: Appropriate mood and thoughts Vital Signs: Vital Signs - 24 hr 08/06/25 03:32 08/06/25 03:56 08/06/25 06:35 Temperature 97.6 F 97.6 F Pulse Rate 98 98 82 Respiratory Rate 22 H 22 H 20 Blood Pressure 148/76 H 148/76 H Pulse Oximetry 95 95 Oxygen Delivery Method Room Air Room Air 08/06/25 07:54 Temperature Pulse Rate 98 Respiratory Rate 18 Blood Pressure Pulse Oximetry Oxygen Delivery Method BMI result Body Mass Index 19.4 Medications Administered Discontinued Medications Generic Name Dose Route Start Last Admin Trade Name Clary PRN Reason Stop Dose Admin Azithromycin 500 mg 08/06/25 06:23 08/06/25 07:03 Azithromycin 500 Mg Tablet PO 08/06/25 06:24 500 mg ONCE ONE Administration Albuterol Sulfate 2.5 mg/ 0 mg 08/06/25 06:30 08/06/25 06:33 Albuterol/Ipratropium 3 ml INHALE 08/06/25 06:31 3 dose ONCE ONE Administration Albuterol Sulfate 5 mg/ 0 mg 08/06/25 07:47 08/06/25 07:51 Albuterol/Ipratropium 3 ml INHALE 08/06/25 07:48 7.5 each ONCE ONE Administration Prednisone 50 mg 08/06/25 06:23 08/06/25 07:03 Prednisone 10 Mg Tablet PO 08/06/25 06:24 50 mg ONCE ONE Administration Medical Decision Making Medical Decision Making [facility] Narrative: This is a 65-year-old male history of COPD presented hospital today for increased shortness of breath. Bilateral wheezing. Patient's x-ray was negative. I suspect patient likely has COPD exacerbation. ED bronch protocol will be ordered. A dose of p.o. prednisone will be provided. A dose of azithromycin will be given to the patient at this time. We will continue to observe the patient. Chest x-ray is clear. We will plan to discharge patient does time. He is feeling better after the breathing treatment. Prednisone burst course will be prescribed. Azithromycin course will be prescribed to the patient as well. Differential Diagnosis Differential Diagnoses: The differential diagnosis associated with the presentation includes Pneumonia, URI, COPD exacerbation Lab Data Labs: Lab Results 08/06/25 Range/Units 03:41 Influenza Type A (PCR) NEGATIVE (Negative) Influenza Type B (PCR) NEGATIVE (Negative) RSV RNA Qual (PCR) NEGATIVE (Negative) SARS-CoV-2 RNA (RT-PCR) NEGATIVE (Negative) Independent Interpretation I performed an independent interpretation of an: Plain X-Ray Radiology Impression Discussion of test interpretation with radiology: I have reviewed the radiologist's reading. Chronic Conditions COPD Discharge Plan Discharge Clinical Impression: COPD with acute exacerbation Patient Disposition: Home, Self-Care Prescriptions: New prednisone 50 mg tablet 50 mg PO DAILY 5 Days Qty: 5 0RF azithromycin [Zithromax] 250 mg tablet See Rx Instructions .ROUTE .COMPLEX Qty: 6 0RF Rx Instructions: For 250 mg dose pack: take 500 mg today (day 1), then 250 mg for 4 days (days 2-5) No Action cholecalciferol (vitamin D3) 1,250 mcg (50,000 unit) capsule 1,250 mcg PO QWEEK 84 Days Qty: 12 0RF Dulera 100-5 mcg/actuation HFA aerosol inhaler 2 puff inhalation BID Qty: 13 8RF (DME) nebulizer and compressor [All-In-One Nebulizer System] Device See Rx Instructions .Route Qty: 1 0RF Rx Instructions: As directed acetaminophen [Tylenol] 325 mg Tablet 650 mg PO Q4H PRN (Reason: Pain) ipratropium-albuterol 0.5 mg-3 mg(2.5 mg base)/3 mL solution for nebulization 3 ml inhalation Q6-8H PRN (Reason: wheezing) 30 Days Qty: 180 7RF albuterol sulfate 2.5 mg/0.5 mL solution for nebulization 5 mg inhalation Q6H PRN (Reason: shortness of breath or wheezing) Qty: 30 8RF albuterol sulfate [Ventolin HFA] 90 mcg/actuation HFA aerosol inhaler 2 puff inhalation Q4-6H PRN (Reason: shortness of breath or wheezing) Qty: 8.5 2RF prednisone 50 mg tablet 50 mg PO DAILY Qty: 5 0RF Print Language: Portuguese
[2025-08-06] MEDS: Albuterol Sulfate 2.5 MG, Albuterol/Iprat 2.5/0.5MG 3 ML 3 ML INHALE (06:33)
[2025-08-06 06:35] VITALS: PULSE 82; RESP 20; O2SAT 94
--- NOTE | 2025-08-06 07:30 | PC.NURSE ---
Assumed care of patient at 0645. Patient completed nebulizer treatment. Ambulatory pulse ox remained around 96-97% on room air. Patient reporting feeling more short of breath during ambulation. Heart rate 95 while resting and 115 while ambulation. Patient resting in bed with oxygen saturation >96% on room air.
[2025-08-06] MEDS: Albuterol Sulfate 5 MG, Albuterol/Iprat 2.5/0.5MG 3 ML 3 ML INHALE (07:51)
[2025-08-06 07:54] VITALS: PULSE 98; RESP 18; O2SAT 93
[2025-08-06 09:10] VITALS: BP 126/79; PULSE 101; RESP 20; TEMP 36.7; O2SAT 96
== END 2025-08-06 09:12 | disposition home or self-care (01) ==
PROVIDERS: Emergency Provider Student in an Organized Health Care Education/Training Program; PCP Internal Medicine
DX: J44.1 Chronic obstructive pulmonary disease with (acute) exacerbation (principal); R06.02 Shortness of breath; R07.9 Chest pain, unspecified; R05.9 Cough, unspecified; Z03.818 Encounter for observation for suspected exposure to other biological agents ruled out; Z87.891 Personal history of nicotine dependence
CPT/HCPCS: 71045; 87637; 94640; 99284

== ENCOUNTER → 2025-08-06 03:38 | Outpatient (BNV) | payer OTHER, SELFPAY | PROVIDERS: PCP Internal Medicine; Visit Provider Radiology Diagnostic Radiology | DX: R07.9 Chest pain, unspecified (principal) | CPT/HCPCS: 71045 ==

== ENCOUNTER 2025-08-27 13:29 | Outpatient (AMB) | payer OTHER, SELFPAY ==
--- NOTE | 2025-08-27 13:38 | MHC.PC.OV ---
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: No Accompanied by: Self / Same As Patient Allergies Penicillins (PCN) Allergy (Verified 08/27/25 13:38) Unknown Medication List - Last Reconciled 08/27/25 by Celso Pozo MD acetaminophen (Tylenol) 650 mg PO Q4H PRN albuterol sulfate 5 mg inhalation Q6H PRN albuterol sulfate 90 mcg/actuation (Ventolin HFA) 2 puffs inhalation Q4-6H PRN fluticasone propion-salmeterol 250-50 mcg/dose (Advair Diskus) 1 inh inhalation BID ipratropium-albuterol 0.5 mg-3 mg(2.5 mg base)/3 mL 3 mL inhalation Q6-8H PRN 30 days nebulizer and compressor (All-In-One Nebulizer System) As directed Tobacco use date assessed: 06/25/25 Fall risk assessment: No Falls in past year Last assessed Fall Risk: 08/27/25 Dental Screening Dental Screen Date: 06/25/25 HPI HPI Comments History of Present Illness Details History of Present Illness The patient is a 65 year old male presenting with worsening dyspnea for over three weeks. He visited the emergency room approximately three weeks ago for these symptoms and was treated with breathing treatments, a 5-day course of prednisone, and antibiotics, which provided minimal relief. His symptoms have progressively worsened over the last week and a half, with dyspnea occurring with minimal exertion such as getting dressed, and he has missed a week and a half of work as a result. Associated symptoms include a productive cough with sputum that is sometimes white and sometimes brownish and chunky. He denies any fevers or chills and has had no known sick contacts. His history is significant for COPD and emphysema, which was noted on a chest X-ray performed at his ER visit three weeks ago. His current medication regimen includes albuterol as needed, an ipratropium/albuterol solution, and Advair twice daily, none of which are providing significant relief. He was previously taking Dulera, which he felt was more effective, but was switched to Advair after being without medication for almost two weeks due to a pharmacy backorder. He reports having stopped smoking about a month ago but had a few cigarettes at the beginning of June. He is vaccinated against influenza and COVID-19, and tests for both were negative during his recent ER visit. Medical History: - Chronic obstructive pulmonary disease (COPD) - Emphysema Medications: - Albuterol inhaler, as needed - Ipratropium/albuterol inhalation solution - Fluticasone/salmeterol (Advair) 100/50 mcg, twice daily Diagnostic Results: - Chest X-ray (approximately 3 weeks ago): Showed emphysema, otherwise clear. - COVID-19 test (approximately 3 weeks ago): Negative. - Influenza test (approximately 3 weeks ago): Negative. Social History - Tobacco Use: Reports quitting smoking about a month ago, with a brief relapse in June. - Employment: Has missed a week and a half of work due to his symptoms. - Functional Status: Experiences dyspnea on minimal exertion, including getting dressed. [facility] Medical History (Updated 08/27/25 @ 14:07 by Celso Pozo MD) COPD exacerbation Prediabetes Vitamin D deficiency Dyspnea Tobacco use disorder COPD with acute exacerbation Bronchiolitis COPD (chronic obstructive pulmonary disease) Surgical History Hx of hernia repair (01/05/25) Family History (Updated 06/25/25 @ 13:11 by Jeimy Andre MA) Mother No problems noted. Father No problems noted. 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 How often do you have a drink containing alcohol?: Monthly or less 2. How many drinks containing alcohol do you have on a typical day when you are drinking?: 1 or 2 3. How often do you have six or more drinks on one occasion?: Never Total Score: 1 FERNANDEZ-7 AMB Questionnaire FERNANDEZ-7 Date FERNANDEZ - 7 assessed: 06/25/25 Source: Developed by Drs. Greg Henderson, Skylar Castañeda, Basilio Patten and colleagues, with an educational trice from [employer]. Review of Systems Narrative Review of Systems - Respiratory: Reports worsening dyspnea for three weeks, occurring with minimal exertion, and a productive cough with white or brownish chunky sputum. - Constitutional: Denies fevers and chills. All systems reviewed & are unremarkable except as reviewed in HPI and above Physical exam (Primary Care) Vital Signs: Last Vital Signs Temp 97.3 F 08/27/25 13:39 Pulse 73 08/27/25 13:39 Resp 16 08/27/25 13:39 BP 120/76 08/27/25 13:39 Pulse Ox 97 08/27/25 13:39 Oxygen Delivery Method Room Air 08/27/25 13:39 Care Plan Goal for BP management: In Goal BMI result Body Mass Index 19.6 Tobacco/Smoking Status: Tobacco use Status Tobacco use date assessed 06/25/25 08/27/25 13:43 Patient Tobacco Use Status Former Tobacco user 08/27/25 13:43 Tobacco use type Cigarette 08/27/25 13:43 e-Cigarette/Vaping Use Former Use 08/27/25 13:43 Thrive Assessment: Date of Thrive Assessment Date Thrive assessed 06/25/25 08/27/25 13:43 Narrative Physical Exam General: +Alert and oriented, Well nourished, No acute distress. Eye: Pupils are equal, round and reactive to light, Intact accommodation, Extraocular movements are intact, Normal conjunctiva, Vision unchanged. HENT: Normocephalic, Atraumatic, Tympanic membranes are clear, Normal hearing, Oral mucosa is moist, No pharyngeal erythema, Ear canals patent. Respiratory: Lungs with wheezing bilaterally, Respirations are labored. Cardiovascular: Regular rate, Regular rhythm, S1 auscultated, S2 auscultated, No murmur, Good pulses equal in all extremities, Normal peripheral perfusion, No edema. Gastrointestinal: Soft, Non-tender, Non-distended, Normal bowel sounds, No organomegaly. Musculoskeletal: Normal range of motion, Normal strength, No tenderness, No swelling, No deformity, Normal gait. Integumentary: Warm, Dry, [place], Intact. Neurologic: Alert, Oriented, Normal sensory, Normal motor function, No focal defects, Cranial Nerves II-XII are grossly intact, Normal deep tendon reflexes. Psychiatric: Cooperative, Appropriate mood & affect, Normal judgment. Coding Level of Care Code Est Pt Level 4 (81615) Add On Problem Visit Only Diagnoses COPD exacerbation J44.1 Assessment & Plan Assessment & Plan (1) COPD exacerbation: Comment: - The patient presents with worsening dyspnea and productive cough, consistent with a COPD exacerbation, which has been refractory to recent ER treatment and his current outpatient regimen. - The plan includes increasing Advair dose to a medium strength, prescribing a 5-day course of prednisone, and a 5-day course of azithromycin for its anti-inflammatory and antibacterial properties. - A new chest X-ray and a COVID-19 test are ordered for today to rule out other concurrent processes. - The patient has upcoming appointments with pulmonology for a PFT and consultation. - He was counseled to seek emergency care for any worsening of his breathing. Code(s): J44.1 - Chronic obstructive pulmonary disease with (acute) exacerbation Category: Medical Plan: Health Maintenance: - Vaccinations: Patient has received both influenza and COVID-19 shots. - Smoking Cessation: Addressed tobacco use; patient reports quitting approximately one month ago. - Specialist Care: Patient has an upcoming PFT and consultation with a controlled area checker. Patient was informed and verbally consented to the use of an ambient scribe for clinic note documentation during this visit. Plan I discussed with the patient that his symptoms of increased secretions and shortness of breath are consistent with a COPD exacerbation. I explained that because his recent course of treatment did not resolve his symptoms and they are now worsening, we need to escalate his care. The plan includes increasing his Advair inhaler from a low to a medium dose, and prescribing new courses of prednisone and azithromycin. I explained that azithromycin has both antibacterial properties and helps reduce inflammation in the lungs. I ordered a chest x-ray and COVID test to be completed today. I emphasized that he is a high-risk individual due to his COPD and that if his breathing worsens, he should call 911 and go to the emergency room. I will call him with the results of his x-ray once they are available. Orders: Orders XR chest 2V Today J41.8 - Mixed simple and mucopurulent chronic bronchitis SARS-CoV2/FLU/RSV Today R09.89 - Other specified symptoms and signs involving the circulatory and respiratory systems Medications: New fluticasone propion-salmeterol 250-50 mcg/dose (Advair Diskus) 1 inh inhalation BID 60 ea 0RF prednisone 50 mg PO DAILY 5 tabs 0RF azithromycin For 250 mg dose pack: take 500 mg today (day 1), then 250 mg for 4 days (days 2-5) PO 6 tabs 0RF Discontinued fluticasone propion-salmeterol 100-50 mcg/dose (Advair Diskus) Discontinued Reason: Doctor's Order 1 inh inhalation BID 60 ea 0RF Patient Instructions: - Go to radiology today to have a chest x-ray. It is a walk-in service, so no appointment is needed. - Go to the lab today to get a swab to test for COVID-19. - Start taking the new, higher-dose Advair inhaler that has been prescribed. - Take the 5-day course of prednisone as prescribed. - Take the 5-day course of azithromycin as prescribed. - Continue to use your home nebulizer machine as you need it. - Make sure to go to your pulmonary function test this Wednesday and your appointment with the lung specialist next Wednesday. - If your breathing gets worse at any time, call 911 or go to the emergency room right away. - We will call you with your x-ray results once they are ready.
[2025-08-27 13:39] VITALS: BP 120/76; PULSE 73; RESP 16; TEMP 36.3; O2SAT 97; BMI 19.6
== END 2025-08-27 14:08 | disposition home or self-care (01) ==
LOC: HO.HMCHD 13:29
PROVIDERS: PCP Internal Medicine; Visit Provider Student in an Organized Health Care Education/Training Program
DX: J44.1 Chronic obstructive pulmonary disease with (acute) exacerbation (principal)

== ENCOUNTER 2025-08-27 13:29 | Outpatient (REF) | payer OTHER, SELFPAY ==
--- NOTE | ~2025-08-27 | XR_ITS ---
EXAMINATION: XR CHEST 2 VIEWS HISTORY: J41.8 - Mixed simple and mucopurulent chronic bronchitis COMPARISON: Comparison is made with the prior examination dated 08/06/2025. FINDINGS: PA and lateral views of the chest are submitted. The lungs remain hyperinflated, consistent with COPD. There are diffuse increased interstitial markings in the upper lung zones with extensive scarring without change. No new focal airspace opacity is seen. There is no pleural effusion, pneumothorax, or pulmonary vascular congestion. The heart is normal in size. The bones are intact. XR/XR chest 2V IMPRESSION: COPD. Chronic changes as described. No acute cardiopulmonary abnormality. Electronically signed by: Greg Tabor MD 08/27/2025 02:32 PM [facility]
[2025-08-27 15:28] LABS: Resp Syncy Virus RNA Qual PCR NEGATIVE (Negative); SARS COV2 PCR INHOUSE NEGATIVE (Negative)
== END 2025-08-27 13:30 | disposition home or self-care (01) ==
LOC: HO.XRAY 13:29
PROVIDERS: PCP Internal Medicine; Visit Provider Student in an Organized Health Care Education/Training Program
DX: J41.8 Mixed simple and mucopurulent chronic bronchitis (principal); R09.89 Other specified symptoms and signs involving the circulatory and respiratory systems; J44.1 Chronic obstructive pulmonary disease with (acute) exacerbation; R06.00 Dyspnea, unspecified; R05.9 Cough, unspecified; J43.9 Emphysema, unspecified; F17.210 Nicotine dependence, cigarettes, uncomplicated
CPT/HCPCS: 71046; 87637; 99212

== ENCOUNTER → 2025-08-27 14:06 | Outpatient (BNV) | payer OTHER, SELFPAY | PROVIDERS: PCP Internal Medicine; Visit Provider Radiology Diagnostic Radiology | DX: J44.9 Chronic obstructive pulmonary disease, unspecified (principal); J41.8 Mixed simple and mucopurulent chronic bronchitis | CPT/HCPCS: 71046 ==